=== PATIENT | female | born 1980 | race Caucasian/White ===

== ENCOUNTER 2022-05-04 23:15 | Emergency (ER) | payer SELFPAY ==
[2022-05-04 23:25] VITALS: BP 125/78; PULSE 84; RESP 18; TEMP 36.8; O2SAT 99; BMI 58.1
--- NOTE | 2022-05-04 23:47 | CRLHL7_ITS ---
For Patients: As a result of the Century Cures Act, medical imaging exams and procedure reports are released immediately into your electronic medical record. You may view this report before your referring provider. If you have questions, please contact your health care provider. INDICATION: fall on blood thinners, hematoma sacral area TECHNIQUE: CT pelvis without contrast. COMPARISON: CT abdomen and pelvis 11/1920. FINDINGS: Bones: No acute fracture or aggressive osseous lesion. Alignment is normal. Joints: Unremarkable. Soft tissues: No inflammatory stranding posterior to or about the sacrum to indicate a hematoma. Probable injection granulomas in the anterior lower abdominal wall. Large fat-containing umbilical hernia. Skin thickening and subcutaneous soft tissue stranding about the lower aspect of the patient`s pannus, partially imaged. No free fluid in the pelvis. IMPRESSION: No acute fracture. No CT evidence for sacral hematoma. Large fat-containing umbilical hernia. Skin thickening and subcutaneous soft tissue stranding about the lower aspect of the patient`s pannus, which is incompletely imaged. Findings could represent cellulitis. Recommend correlation with physical exam. Please note that all CT scans at this facility use dose modulation, iterative reconstruction, and/or weight-based dosing when appropriate to reduce radiation dose to as low as reasonably achievable. Dictated by Robson Silver MD @ 05/05/2022 12:44:33 AM (Electronically Signed)
[2022-05-05 00:03] VITALS: O2SAT 99
[2022-05-05] MEDS: 0.9 % SODIUM CHLORIDE 1000 ml 1,000 ML IV (00:04)
[2022-05-05 00:07] LABS: Creatinine, Point-of-Care* 0.7 mg/dl (0.6-1.3)
[2022-05-05 00:13] LABS: Hemoglobin* 12.7 gm/dL (12.0-16.0)
--- NOTE | 2022-05-05 00:31 | ED.BACK ---
HPI - Back Pain/Injury General Chief Complaint: Back Injury/Pain Stated Complaint: lower back pain post fall - on blood thinners Time Seen by Provider: 05/04/22 23:21 History of Present Illness HPI Narrative: 41-year-old woman here with complaint of low back area pain after a fall onto her backside 3-4 days ago. She is not having any headache. No discoordination or visual disturbances. No neck pain. No radicular symptoms in her legs. Pain is localized across the low back. She has not been experiencing any new abdominal pain. Does have a history of pulmonary embolus and is maintained on Coumadin. Does have a history also an abdominal wall hematoma while anticoagulated in the left mid abdomen that continues to be a uncomfortable many months later but not worsening. She gestures to her mid lower left abdomen. She has not been having any melena or hematochezia or hematemesis. No new shortness of breath or chest pain. Hurts to rotate bend stoop sit. Having trouble sleeping due to pain. Has been taking acetaminophen with minimal relief. Related Data Home Medications Medication Instructions Recorded Confirmed glipizide 10 mg tablet 10 mg PO BID 05/04/22 05/04/22 lisinopril 10 mg tablet 10 mg PO DAILY 05/04/22 05/04/22 metformin 1,000 mg tablet 1,000 mg PO BID 05/04/22 05/04/22 warfarin 4 mg tablet 4 mg PO DIRECTED 05/04/22 05/04/22 Previous Rx's Medication Instructions Recorded omeprazole 40 mg capsule,delayed 40 mg PO DAILY 14 days #14 caps 05/05/22 release Allergies Allergy/AdvReac Type Severity Reaction Status Date / Time No Known Drug Allergies Allergy Verified 05/04/22 23:35 Review of Systems Status of ROS: Reports: 6 or more systems reviewed and unremarkable except as noted in History and below [facility] Medical History Bacterial vaginosis wound infection Gonorrhea Macrosomia Morbid obesity with BMI of 60.0-69.9, adult IMELDA (obstructive sleep apnea) Polycystic ovaries Pulmonary embolism Type 2 diabetes mellitus Surgical History History of section History of tonsillectomy Social History Smoking Status: Never smoker Do you use any of these nicotine containing products: None Second hand tobacco smoke exposure: No How often do you have a drink containing alcohol: never How often do you have six or more drinks on one occasion: Never AUDIT-C Alcohol total score: 0 Non-prescribed substance use: denies use Active Problems Contusion (Acute) T14.8XXA Bloody emesis (Acute) K92.0 Medical History Bacterial vaginosis wound infection Gonorrhea Macrosomia Morbid obesity with BMI of 60.0-69.9, adult IMELDA (obstructive sleep apnea) Polycystic ovaries Pulmonary embolism Type 2 diabetes mellitus Surgical History History of section History of tonsillectomy Social History Smoking Status: Never smoker Do you use any of these nicotine containing products: None Second hand tobacco smoke exposure: No How often do you have a drink containing alcohol: never How often do you have six or more drinks on one occasion: Never AUDIT-C Alcohol total score: 0 Non-prescribed substance use: denies use Exam Narrative: Exam Narrative: I observe Martha ambulating into the emergency department consistent with degree obesity. Otherwise breathing easily. Skin is warm and dry. There is a hand sized dark purple red bruise on the right low back at the level of the upper sacrum. No induration. Difficult to really assess tissues here I think limited by obesity. Abdomen otherwise is obese soft and nontender in the upper abdomen epigastric area. Cranial nerves 2-12 intact. Fully alert easily conversant. Transitions to standing with some discomfort. Does not have midline back or sacral tenderness exactly. Const: Vital Signs, click to edit/add: Vital Signs - 24 hr 05/04/22 23:25 05/05/22 00:03 05/05/22 01:25 Temperature 98.2 F 98.2 F Pulse Rate [Right Pulse Oximeter] 84 84 Respiratory Rate 18 18 Blood Pressure [Ri ght Upper Arm] 125/78 125/78 Pulse Oximetry 99 99 Oxygen Delivery Me thod Room Air 05/05/22 01:25 Temperature 98.5 F Pulse Rate [Right Pulse Oximeter] 85 Respiratory Rate 18 Blood Pressure [Ri ght Upper Arm] 122/79 Pulse Oximetry 99 Oxygen Delivery Me thod Room Air Documenting provider has reviewed patient's vital signs: yes Course Vital Signs Vital signs: Initial Vital Signs Temperature 98.2 F 05/04/22 23:25 Temperature Source Temporal Artery Scan 05/04/22 23:25 Pulse Rate 84 05/04/22 23:25 Respiratory Rate 18 05/04/22 23:25 Blood Pressure 125/78 05/04/22 23:25 Blood Pressure Mean 93 05/04/22 23:25 Blood Pressure Position Standing 05/04/22 23:25 Pulse Oximetry 99 05/04/22 23:25 Oxygen Delivery Method 05/04/22 23:25 Vital Signs Temperature 98.2 F 05/04/22 23:25 Pulse Rate 84 05/04/22 23:25 Respiratory Rate 18 05/04/22 23:25 Blood Pressure 125/78 05/04/22 23:25 Pulse Oximetry 99 05/04/22 23:25 Oxygen Delivery Method 05/04/22 23:25 Temperature 98.5 F 05/05/22 01:25 Pulse Rate 85 05/05/22 01:25 Respiratory Rate 18 05/05/22 01:25 Blood Pressure 122/79 05/05/22 01:25 Pulse Oximetry 99 05/05/22 01:25 Oxygen Delivery Method 05/05/22 01:25 MDM - Back Pain/Injury MDM Narrative Medical decision making narrative: Given history of abdominal hematoma, anticoagulation, degree of pain I think imaging is warranted. Will check INR and contrasted imaging of the low back/pelvis. INR is 1.66. Hemoglobin is 12.7. Vomited in imaging. Looks consistent with blood stained emesis. Positive on gastroccult testing. Feels well otherwise on reassessment. Martha says has felt similarly with IV contrast in the past and she feels that that caused her to be nauseated/vomited. She denies having any unusual abdominal pain or any vomiting prior to this recently. We discussed pain management. She is not taking a PPI generally. On my review of CT images I do not see a hematoma nor acute bony abnormality. Radiology over-read as below INDICATION: fall on blood thinners, hematoma sacral area TECHNIQUE: CT pelvis without contrast. COMPARISON: CT abdomen and pelvis 11/1920. FINDINGS: Bones: No acute fracture or aggressive osseous lesion. Alignment is normal. Joints: Unremarkable. Soft tissues: No inflammatory stranding posterior to or about the sacrum to indicate a hematoma. Probable injection granulomas in the anterior lower abdominal wall. Large fat-containing umbilical hernia. Skin thickening and subcutaneous soft tissue stranding about the lower aspect of the patient`s pannus, partially imaged. No free fluid in the pelvis. IMPRESSION: No acute fracture. No CT evidence for sacral hematoma. Large fat-containing umbilical hernia. Skin thickening and subcutaneous soft tissue stranding about the lower aspect of the patient`s pannus, which is incompletely imaged. Findings could represent cellulitis. Recommend correlation with physical exam. I discussed findings and CT with Martha. I offered to evaluate this area for potential cellulitis. She was disinclined. Is relieved overall that no fracture or hematoma is evident. See patient discharge plan. Medical Records Attestation: I reviewed the patient's medical records. Lab Data Attestation: I reviewed the patient's lab results. Labs: Lab Results 05/05/22 05/05/22 05/05/22 Range/Units 00:01 00:01 00:06 Hgb 12.7 (12.0-16.0) gm/dL INR 1.66 H (0.91-1.10) POC Creatinine 0.7 (0.6-1.3) mg/dl Discharge Plan Discharge Clinical Impression: Contusion, Bloody emesis Patient Disposition: Home, Self-Care Condition: Stable Additional Instructions: I am concerned about this bloody vomitus. Your hemoglobin was 12.7 today. You might consider taking a medication like omeprazole for a couple of weeks to settle down acid in the stomach. Return for persistent bloody vomitus, new shortness of breath or lightheadedness. Your INR was 1.66. In the setting of possible evolving stomach bleed or this large bruise at your backside, it's hard for me to tell you to increase your Coumadin dosing to get into range. I would wait to see what happens with this potential stomach bleed over the next couple of days. Recheck INR in middle of next week. Can check hemoglobin at that time too. If all of this seems to settle down I still would recheck blood level like hemoglobin/hematocrit in a few weeks. I would also follow up for recommendations on further evaluation which might include upper endoscopy. Tylenol with codeine from [facility] --this can make you sleepy and potentially constipated. Be sure to stay well hydrated drinking 2-3 L of water daily. Might want to take a tablet of senna once or twice a day if taking the Tylenol with codeine. Prescriptions: New omeprazole 40 mg capsule,delayed release(DR/EC) 40 mg PO DAILY 14 Days Qty: 14 0RF No Action lisinopril 10 mg tablet 10 mg PO DAILY Label Comments: TAKE ONE TABLET BY MOUTH EVERY DAY metformin 1,000 mg tablet 1,000 mg PO BID Label Comments: TAKE ONE TABLET BY MOUTH TWICE A DAY WITH MEALS warfarin 4 mg tablet 4 mg PO DIRECTED Label Comments: TAKE 2.5 TABLETS (10MG) BY MOUTH ON FRIDAY AND FRIDAY AND 2 TABLETS (8MG) ALL OTHER DAYS OR DIRECTED STRENGTH: 4 MG glipizide 10 mg tablet 10 mg PO BID Label Comments: TAKE ONE TABLET BY MOUTH TWICE A DAY BEFORE MEALS Follow Up/Referrals: Franca Saucedo MD [Primary Care Provider] - Stand Alone Forms: [employer] Info Instructions
[2022-05-05 00:35] LABS: INR 1.66 (0.91-1.10); Prothrombin Time 20.5 Seconds
--- NOTE | 2022-05-05 00:36 | ED.NURSE ---
gastroccult positive for blood. MD Reyes updated.
[2022-05-05 01:25] VITALS: BP 122/79; BP 125/78; PULSE 84; PULSE 85; RESP 18; TEMP 36.8; TEMP 36.9; O2SAT 99
[2022-05-06 01:23] LABS: Gastric Occult Blood* POSITIVE
== END 2022-05-05 01:25 | disposition home or self-care (01) ==
PROVIDERS: Emergency Provider Family Medicine; PCP Family Medicine
DX: K92.0 Hematemesis (principal); S30.0XXA Contusion of lower back and pelvis, initial encounter
CPT/HCPCS: 36415; 72193; 82565; 83986; 85018; 85610; 94761; 99283; 99284; J7030; Q9967

== ENCOUNTER 2024-06-01 13:05 | Inpatient (IN) | payer MEDICAID, SELFPAY ==
[2024-06-01] VITALS (28 sets, daily range): BP systolic 125–150; BP diastolic 63–75; PULSE 75–96; RESP 14–28; TEMP 36.4–37.2; O2SAT 69–96; BMI 65.6; BMI 50.3
--- OUTSIDE RECORDS SUMMARY | 2024-06-01 13:07 | XMS_ITS | Clinical Summary ---
Author Organization [facility] Address [address] [place] [id number] Care Team Providers Care Manager Product Management Name Role Phone Bart Cabrera MD Unavailable [phone] Franca Saucedo MD Primary Care Provide r Allergies No known active allergies Medications blood sugar diagnostic (CONTOUR NEXT STRIPS) stripIndication s:Type 2 diabetes mellitus in , third trimester (HC) Test glucose four times daily. Patient with diabetes mellitus 2 and . 400 Strip 1 8 Active WalkerIndicatio ns:Abdominal wall hematoma, subsequent encounter Walker with front wheels for home use. Bariatric walker 1 Each 1 Active blood-glucose meterIndication s:Type 2 diabetes mellitus without complication, without long-term current use of insulin (HC) Dispense meter, test strips, lancets covered by pt ins. E11.9 NIDDM type II - Test 2 times/day. Reason: Med change 1 Each 1 Active glipiZIDE (GLUCOTROL) 10 mg tabletIndicatio ns:Type 2 diabetes mellitus without complication, without long-term current use of insulin (HC) Take 1 Tablet (10 mg) by mouth once daily before a meal. 90 Tablet 3 4 Active lisinopriL (PRINIVIL; ZESTRIL) 10 mg tabletIndicatio ns:HTN (hypertension) Take 1 Tablet (10 mg) by mouth once daily. 90 Tablet 3 4 Active metFORMIN (GLUCOPHAGE) 1,000 mg tabletIndicatio ns:Type 2 diabetes mellitus without complication, without long-term current use of insulin (HC) Take 1 Tablet (1,000 mg) by mouth once daily with a meal. 90 Tablet 3 4 Active warfarin (COUMADIN) 4 mg tabletIndicatio ns:Hypercoagulo jimbo (HC),Hx pulmonary embolism,Recurr ent deep vein thrombosis (DVT) (HC),Anticoagul ation monitoring, INR range 2-3 TAKE TWO AND ONE-HALF TABLETS (10MG) BY MOUTH ON FRIDAY AND FRIDAY AND 2 TABLETS (8MG) ALL OTHER DAYS OR DIRECTED. 240 Tablet 3 4 Active ferrous gluconate 324 mg (37 mg iron) tabletIndicatio ns:Other iron deficiency anemia Take 1 Tablet by mouth three times daily with meals. 90 Tablet 3 4 Active Active Problems Problem Noted Date Diagnosed Date Pulmonary hypertension 06/06/2022 Type 2 diabetes mellitus wit h other specified complication, without long-term current use of insulin 06/06/2022 Abdominal wall hematoma 11/20/2020 Acute blood loss anemia 11/20/2020 TRANG (acute kidney injury) 11/20/2020 Hyperkalemia 11/20/2020 Pneumonia due to COVID-19 virus 11/20/2020 Hypercoagulopathy 05/21/2018 HTN (hypertension) 07/10/2017 Recurrent deep vein thrombosis (DVT) 04/26/2016 Anticoagulation monitoring, INR range 2-3 2016 Overview (04/26/2016): 04/20/17: [facility] where a venous doppler was performed and was positive for deep vein thrombosis from saphenous vein all the way up to her thigh. Rubi Cooper RN .................... 04/26/2016 3:42 PM S/P tubal ligation 09/27/2014 Diaphoresis 09/27/2014 E coli bacteremia 09/27/2014 Elevated troponin 09/27/2014 Fever 09/26/2014 ACP (advance care planning) 09/26/2014 Overview (09/28/2014): Patient has identified Health Care Agent(s): No Add Health Care Agents: No Patient has Advance Care Plan Documents (Health Care Directive, POLST): No Patient has identified Specific Treatment Preferences: Yes Specific Treatment Preferences: a.) Code Status: CPR/Attempt Resuscitation SW met with Pt 09/28/2014. Pt states if she's unable to communicate her healthcare wishes her sister, Abril Fernandez: [phone], would be her primary spokesperson. Marquita Andujar, BACK HOE OPERATOR, PROGRAM MANAGEMENT INTERN...Pager [phone]... ext. [phone], contact via anwpaging delivery delivered 09/25/2014 Prolonged PTT 09/24/2014 Overview (09/24/2014): PTT 59 @ 0630, 09/24 Full-term premature rupture of membranes with onset of labor more than 24 hours following rupture 09/23/2014 Macrosomia affecting managem ent of mother in third trimester 09/22/2014 IMELDA (obstructive sleep apnea) 09/22/2014 Vitamin D deficiency 07/22/2014 Poorly controlled type 2 diabetes mellitus 07/20 Hx pulmonary embolism 07/20/2014 Overview (07/20/2014): 5 days post-C/S 2007 Supervision of other high-risk (V23.89) 06/27/2014 Overview (09/20/2014): [facility] NEXT VISIT ALERTS: Patient admitted for chest pain 09/17. [facility] Changed heparin 19,000 units Q 8 hours on 09/15/14 (hold 24 hr prior to procedure) NEEDS Heparin Level drawn at [facility] on Friday, September 19. Needs Platelets monthly 09/08/14-185,000 Last draw: 09/15/14= 202,000 PRIMARY DIAGNOSIS: Recent H/O POLYHYDRAMNIOS Hx PE 5 days (on therapeutic anticoagulant-Heparin 19,000 units q 8 hrs) Hx DVT BMI of 62 Hx LST C/S x 2. (FTP 2005, Rpt 2007) Hx of wound infection 2007 after C/S Type 2 DM on Glyburide/Metformin (non compliant with testing) POOR CONTROL Dyspnea PCOS Hx Head Injury 2001 Hx gonorrhea 2007 LAST GROWTH: Needs serial growth ultrasounds every 4 weeks 08/25/14 34w1d EFW 3504 grams, percentile >90%, AC > 97th %ile BELLE 12.44 07/20/14 29w0d EFW 1781 grams, percentile 85, BELLE 23.16 06/22/14 26w0d EFW 935 grams, percentile 93rd 05/26/14 21w0d EFW 434 grams, percentile 76th 04/29/14 17w6d EFW 205 grams, percentile 70th TESTING PLANS: 28 wks per protocol-BPPs twice weekly (no NST due to maternal habitus) Having BPP only in [place] on Mondays & @ [facility] on DEPRESSION SCREEN Initial screen: Date 08/11/14 PHQ-9 score: 0 : Date PHQ-9 score: MDD Present?: NO EBER: EBER signed for [facility]: Signed 08/11/14 REFERRING PHYSICIAN: Dr. Keyonna Ramires & Dr Amaury Hinton [place] [phone] SPECIALISTS: Endocrine-PDC Dr. Cabrera 09/01 [facility] Cardiology: Consult scheduled for 08/30 EMT I/85: CARE COORDINATION: Ena Dominique RN & Akilah Buitrgao RN Maternal Care Coordination [phone] Ekta & Natividad Care Coordination RNs for [facility] [place] [phone] CONSULTS: MDA reviewed 09/06/14 ENDOCRINE PDC-ongoing management I CARDIOLOGY CONSULT 08/30 Impression: 1. Morbid obesity, third trimester , need for section and surgical sterilization. A) The patient had an echo that is satisfactory. B) She should be at no increased risk from a cardiac standpoint of her and sterilization. PROCEDURES: 09/17/14 CT IMPRESSION: 1. No CT evidence of pulmonary embolism seen. 2. Enlargement of the main pulmonary artery is present which may be due to a hyperdynamic state. Followup imaging after delivery is recommended to exclude pulmonary hypertension. 09/17/14 ECHO Final Impressions: Limited Echocardiogram performed 1. Technically limited exam. 2. Normal left ventricular systolic function with estimated ejection fraction fraction of 60-65%. 3. There is no significant pericardial effusion. 09/17/14 Normal ECG CHECKLIST FOR SCHEDULING PROCEDURES: Procedure: C/BIRTH__x___ PPTL __X___ ECV CERCLAGE INDUCTION D&C Unit: L&D___x__ DSC MAIN OR____ Date & Time of procedure: 09/28/14, 09 Gestational age on procedure date? 39 weeks MD doing procedure: Dr. Hernandez and hospitalist Date scheduled: 08/11/14 Scheduling MD: Garcia HODGES notified if early case? No On [facility] calendar? Yes Amnio needed? No Amnio scheduled? Not Applicable Does NICU need notification? No NICU notification done: Not Applicable PPTL permit signed? yes Patient notified of procedure date? Yes Written admission instructions given to patient? Yes MEDS: INSULIN Metformin 1000mg bid Glyburide 5 mg bid Heparin 19,000 units q 8 hrs Patient is on Therapeutic Heparin. Refer to [facility] Anticoagulation Doc Flow Sheet. Platelets monthly, last draw: 09/15 Pertinent/Abnormal LABS: 03/23/14 HgbA1c 6.5 Blood type: O positive, negative antibody screen Last pap: 06/2013 WNL, Initial Hgb 13.6 (03/23/14) Hgb 28 wk 11.8 07/20 Hgb 36 wk 11.7 on 09/08/14 08/18/14 Lovenox level= 0.87 therapeutic 09/08/1471-CEN-pbtpuzez ACTIVITY RESTRICTIONS: NURSING: Tdap vaccine: Date given: 08/18/14 Flu Vaccine: Date given: declined Non BM 64 Plan for Gestational Diabetes screening: Type II DM DELIVERY PLANS: [facility]-See procedures Planning Tubal Ligation-Permit signed/scanned 08/18/14 Is Medical assistance PLAN OF CARE: 09/08/14 HS Labs: CBC and GBS Labor precautions reviewed Instructed on movements and kick counts Patient understands she should call or return to clinic if she experiences any decreased movements, increased contractions (discomfort and frequency), vaginal bleeding, or leaking of fluid. Return to clinic weekly for OB checks Continue twice weekly testing - once at [facility], once at [facility] sterilization consent signed 08/18/14 Transitioned from Lovenox 150 mg twice daily to 15,000 units of heparin every 8 hours, reviewed dosage with Dr. Norbert Will need a peak heparin level next week, explained to patient that this preferably would be done 4 hours post injection Encouraged her to continue with glucose control Will transition to coumadin Repeat previously scheduled for 09/28/[address] Hernandez and OB hospitalist at [facility] Morbid obesity with BMI of 60.0-69.9, adult 03/0 05/2014 Overview (09/24/2014): 3 grams IV prophyl Ancel disc'd/accepted by PharmD Dyspnea 05/02/2014 Diabetes mellitus type II 03/17/2012 Overview (08/04/2014): 08/04/2014First appointment with Dr. Cabrera at [facility] today. Insulin start today. *On 08/04/2014 The Following appointment Plan for 08/11/2014 was made with [facility] and Cynthia Martinez PHOTOGRAPHIC DEVELOPER AND PRINTER On 08/11/2014 patient will have ISABELA part 2 at [facility] at [place] starting at 1245. After BPP at 1245, patient will go to [facility] (115pm or so) to see Dr. Cabrera. After Dr. Cabrera, Return to [facility] for rest of ISABELA After ISABELA, return to [facility] for follow up meal planning. a system change updated this record. This will not affect patient care or billing. This comment can be deleted. Polycystic ovaries 09/21/2009 Resolved Problems Problem Noted Date Diagnosed Date Resolved Date Acute respiratory failure due to COVID-19 11/20/2020 06/06/2022 Recurrent deep vein thrombosis (DVT) 04/26/2016 07/10/2017 Anticoagulation monitoring, INR range 2-3 10/05/2014 04/06/2015 Active labor 09/25/2014 09/26/2014 History of macrosomia in inf ant in prior , currently in third trimester 09/22/2014 09/27/2014 History of wound infection (2007) 09/22/2014 09/27/2014 Request for sterilization 08/19/2014 Overview (08/19/2014): Federal consent signed 08/18/14 Polyhydramnios in third trimester 07/20/2014 09/22/2014 History of DVT (deep vein thrombosis) 05/03/2014 07/10/2017 Previous delivery a ffecting , antepartum 05/03/2014 09/27/2014 Type 2 diabetes mellitus in 05/03/2014 07/10/2017 Overview (09/24/2014): Ha1c= 5.9 mid August 2014; Glyburide/Metformin Obstetric pulmonary embolism, 04/07/2014 09/22/2014 Long-term (current) use of anticoagulants 12/07/2007 06/06/2009 Supervision of other normal 04/21/2007 12/08/2007 Immunizations Immunization Administration Dates Next Due COVID-19 VACCINE SPIKEVAX (M ODERNA 50MCG/0.5ML) 12YO+ PFS 08/05/2023 COVID-19 vaccine (Fangdd-BioNTech 30mcg/0.3mL) P F, MDV 12/19/2020,10/24/2020 Human Papilloma Virus Vaccine 12/16/2006 Influenza, IIV3 (Age >=3 years) 02/08/2005 Pneumococcal Conj 20-valent (Prevnar 20) 024 Td (Age >=7 Years) 06/20/2000 Tdap 08/18/2014 Tuberculin (PPD) 08/06/2010 Family History Medical History Relation Name Comments Good Health Father Cancer Maternal Grandfather brain t umor Cancer Mother survey technologist, ? cervical Diabetes Mother as adult Psychiatric illness Sister depressi on Relation Name Status Comments Father Maternal Grandfather Mother Sister Social History Tobacco Use Types Packs/Day Years Used Date Smoking Tobacco: Never Smokeless Tobacco: Never Tobacco Cessation:Counseling Given: Yes Alcohol Use Standard Drinks/Week Comments No 0 (1 standard drink = 0.6 oz pur e alcohol) PHQ-2 Answer Date Recorded PHQ-2 TOTAL SCORE 0 06/06/2022 Social Connections Answer Date Recorded Do you often feel lonely or isolated from those around you? 0 08/26/2023 Financial Resource Strain Answer Date R ecorded Difficulty of Paying Living Expenses 2 08/05/2023 Difficulty of Paying Living Expenses 1 08/05/2023 Food Insecurity Answer Date Recorded Do you worry your food will run out before you are able to buy more? 1 08/26/2023 Transportation Needs Answer Date Record ed Does lack of transportation keep you from medica l appointments? 2 08/26/2023 Does lack of transportation keep you from work, meetings or getting things that you need? 2 08/26/2023 Housing Stability Answer Date Recorded What is your housing situation today? 1 08/26/2023 Utilities Answer Date Recorded Do you have trouble paying f or utilities (for example, heat, electricity, water, phone)? 1 08/26/2023 Comments No Sex and Gender Information Value Date Recorded Sex Assigned at Not on file Legal Sex Female 5:39 AM NANOTECHNOLOGY ENGINEERING TECHNOLOGIST Gender Identity Not on file Sexual Orientation Not on file Occupation Industry Job Start Date Job End Date homemaker Not on file Not on file Not on file Obstetrics History Para Term AB IAB SAB Ectopic Multiple Livin g Live Births 3 2 2 3 3 Date Outcome GA Total Labor Labor/2nd/3rd Weight Sex Type Anes PTL Stephanie A1 A5 Name Clin 2005 Term 40w 0d 24h 00m/ 4.08 kg (9 lb) F C-Sec tion Spinal Livin g Charanjitrie la Comments:FTP 2007 Term 38w 4d 24h 00m/ 3.63 kg (8 lb) M C-Sec tion Spinal Livin g Marino rosales Delivery Location:[place] Comments:PE 5 days pos tpartum, SROM 2014 Term 38w 4d 5.02 kg (11 lb 1 oz) M C-Sec tion Epidur al N Livin g Malcom Cruz a Delivery Location:[facility] Comments:admit to NICU - sick baby Last Filed Vital Signs Vital Sign Reading Time Taken Comments Blood Pressure 153/79 08/05/2023 1:11 PM CDT Pulse 87 08/05/2023 1:11 PM CDT Temperature 37.6 C (99.6 F) 08/17/2021 11:23 AM CDT Respiratory Rate 20 01/12/2021 9:20 AM NANOTECHNOLOGY ENGINEERING TECHNOLOGIST Oxygen Saturation 90% 08/05/2023 1:11 PM CDT Inhaled Oxygen Concentration - - Weight 180 kg (396 lb 14.4 oz) 08/05/2023 1:11 P M CDT Height 162.6 cm (5' 4) 08/05/2023 1:11 PM CDT Body Mass Index 68.13 08/05/2023 1:11 PM CDT Plan of Treatment Upcoming Encounters Date Type Department Care Team (Late Contact Info) Description 07/06/2024 10:05 AM CDT Office Visit [facility] [address] [place] [address] Franca Saucedo MD [address] [place] [address] Health Maintenance Due Date Last Done Comments Hepatitis B series for Diabe pavan (1 of 3 - 19+ 3-dose series) 2001 Pap test for age 21-65 06/08/2016 4, 03/17/2012, 09/21/2009, Additional history exists Depression screening for age 12+ 06/08/2023 06/07/2022, 06/06/2022, 12/22/2020, Additional history exists COVID-19 vaccine series (2023- season) 2023 08/05/2023, 12/19/2020, 10/24/2020 BMI (ht and wt on same day) for age 18+ 08/04/2024 08/05/2023, 02/18/2022, 08/17/2021, Additional history exists Tetanus booster 08/18/2024 08/18/2014, 06/20/2000 Influenza Vaccine (Season Ended) 2024 02/09/20 05 HIV for age 15-65 Completed 03/23/2014, , 04/14/2007 Hepatitis C screening for ag e 18-79 Completed 03/23/2014 Tdap Completed 08/18/2014 Pneumococcal series for age 6-49 Completed 08/05/19 24 Procedures Procedure Name Priority Date/Time Associated Diagnosis Comments ANTI HIV 1/2 Routine 03/23/2014 11:11 AM NANOTECHNOLOGY ENGINEERING TECHNOLOGIST (HC) ANTI HCV Routine 03/23/2014 11:11 AM NANOTECHNOLOGY ENGINEERING TECHNOLOGIST (HC) TAX AUDITOR THIN PREP PAP SCREEN IMAGED Routine 06/08/2013 2:55 PM CDT Screening for malignant neoplasm of cervix from Last 3 Months or Most Recently Relevant to Health Maintenance Results * ANTI HCV (03/23/2014 11:11 AM NANOTECHNOLOGY ENGINEERING TECHNOLOGIST) HEPATITIS C ANTIBODY Non-Reacti ve Non-Reacti ve 03/23/2014 4:10 PM NANOTECHNOLOGY ENGINEERING TECHNOLOGIST [facility] Blood specimen (specimen) BLOOD SPECIMEN / Unknown Venipuncture / Unknown 03/23/2014 11:11 AM NANOTECHNOLOGY ENGINEERING TECHNOLOGIST 03/23/2014 11:12 AM NANOTECHNOLOGY ENGINEERING TECHNOLOGIST Narrative [facility] - 03/23/2014 4:10 PM NANOTECHNOLOGY ENGINEERING TECHNOLOGIST Antibodies to HCV not detected; does not exclude the possibility of exposure to HCV. Ailyn GUTIERREZ SEND OUTS Final R esult [facility] [address] [place] [address], [place] * ANTI HIV 1/2 (03/23/2014 11:11 AM NANOTECHNOLOGY ENGINEERING TECHNOLOGIST) HIV-1/HIV-2 ANTIBODY Non-Reacti ve Non-Reacti ve 03/23/2014 4:12 PM NANOTECHNOLOGY ENGINEERING TECHNOLOGIST [facility] Blood specimen (specimen) BLOOD SPECIMEN / Unknown Venipuncture / Unknown 03/23/2014 11:11 AM NANOTECHNOLOGY ENGINEERING TECHNOLOGIST 03/23/2014 11:12 AM NANOTECHNOLOGY ENGINEERING TECHNOLOGIST [facility] LAB[facility] - 03/23/2014 4:12 PM NANOTECHNOLOGY ENGINEERING TECHNOLOGIST HIV-1 p24 and HIV-1/HIV-2 Ab not detected Ailyn GUTIERREZ SEND OUTS Final R esult [facility] [address] [place] [address], [place] * TAX AUDITOR THIN PREP PAP SCREEN IMAGED (06/08/2013 2:55 PM CDT) CYTOLOGY CYTOPATHOLOGY REPORT [facility] Status: Final Status [id number] CLINICAL INFORMATION Last Date of LMP :05/10/2013 Last Pap Date :03/17/2012 Last Pap Result :NIL ABN [place]/Bx Past 5 YRS :None Hormone Usage :None Menstrual Status :Regular Periods [place]/Bx done today :No Additional Information :None given HPV Request :HPV if ASCUS SPECIMEN SOURCE :Cervical/vaginal ThinPrep Vial, screening SPECIMEN ADEQUACY :Satisfactory for evaluation No endocervical component seen. INTERPRETATION/RES ULT Negative for intraepithelial lesion or malignancy (NIL) Organisms Fungal organisms morphologically consistent with Lynsey species Cytology 1st Screener :mahesh Signed by :mahesh This specimen was screened by the FDA approved ThinPrep Imaging System and manually reviewed. NOTE: The Pap test is a screening technique, not a diagnostic procedure. It is used primarily to screen for squamous cancers and precursor lesions. Published studies have shown that it is subject to both false negative and false positive results. The pap test should not be used as the sole means to diagnose or exclude pre-malignant and malignant lesions. COLLECTED:06/08/13 ACCESSIONED: 06/09/13 SIGNED: 06/11/13 [facility] PAP [place] CODE NIL [facility] Tissue specimen (specimen) (Cervical/Vagina l) 06/08/2013 2:55 PM CDT 06/08/2013 2:52 PM CDT us Franca Saucedo MD PATHOLOGY/CYTOLOGY [facility] Result [facility] INTERNAL ZIP [id number] [place] [address] from Last 3 Months or Most Recently Relevant to Health Maintenance Additional Health Concerns Infection Onset Date Last Indicated COVID History Comment:COVID+ test result dates: 11/11/20, [place] Patient met COVID clearance criteria on 11/22. For evaluation of subsequent COVID+ results, refer to the algorithm on the AKN: Isolation Precaution Recommendations for Patients with History of COVID-19 Infection. 11/23/2020 11/23/2020 Insurance MEDICAID RAZA MEDICAID RAZA Advance Directives * Full Code (Latest Code Status on File) Date Activated Date Inactivated Comments 11/20/2020 1:25 PM 12/01/2020 4:39 PM Question Answer Comments Code Status Discussion: Not Discussed * Full Code Date Activated Date Inactivated Comments 09/25/2014 6:10 PM 10/05/2014 12:33 AM Question Answer Comments Code Status Discussion: Discussed * Full Code Date Activated Date Inactivated Comments 09/25/2014 6:07 PM 09/25/2014 6:10 PM * Full Code Date Activated Date Inactivated Comments 09/24/2014 1:31 AM 09/25/2014 5:55 PM * Full Code Date Activated Date Inactivated Comments 09/24/2014 12:48 AM 09/24/2014 1:31 AM Care Teams Manager Product Management Relationship Specialty Start Date End Date Franca Saucedo MD [address] [place] [address] PCP - General Family Practice 09/09/18 Bart Cabrera MD [address] [facility] [address] [place] [address] Endocrinology 10/02/14
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
[2024-06-01 14:25] LABS: Basophils Absolute Auto 0.01 K/uL (0.00-0.30); Basophils Percent Auto 0.1 % (0.0-3.0); Eosinophils Absolute Auto 0.13 K/uL (0.00-0.50); Eosinophils Percent Auto 1.8 % (0.0-7.0); Hematocrit* 47.8 % (33.0-51.0); Hemoglobin* 13.3 gm/dL (12.0-16.0); Immature Granulocytes Abs Auto 0.05 K/uL (0.00-0.30); Immature Granulocytes Pct Auto 0.7 %; Lymphocytes Percent Auto 19.1 % (20-44); Mean Corpuscular HGB Conc 28 gm/dL (32-36); Mean Corpuscular Hemoglobin 21 pg (26-34); Mean Corpuscular Volume 77 fL (80-100); Monocytes Percent Auto 6.9 % (0.0-11.0); Neutrophils Absolute Auto 5.05 K/uL (1.7-7.0); Neutrophils Percent Auto 71.4 % (42.0-72.0); Platelet Count* 208 K/uL (140-440); RDW Coefficient of Variation % 18.6 % (11.5-15.5); Red Blood Count* 6.24 m/uL (4.00-5.20); White Blood Count* 7.08 K/uL (4.50-11.00)
[2024-06-01 14:32] LABS: Slide Review Reflex No
[2024-06-01 14:36] LABS: Chloride* 100 mmol/L (96-114); Sodium* 137 mmol/L (135-149)
[2024-06-01 14:37] LABS: Potassium* 4.4 mmol/L (3.6-5.1)
[2024-06-01 14:39] LABS: Blood Urea Nitrogen* 10 mg/dL (5-24); Creatinine* 0.5 mg/dL (0.5-1.5); Est. Creatinine Clearance* 143.99; Estimated Glomerular Filt Rate 121 ml/min
[2024-06-01 14:40] LABS: Anion Gap 5 mEq/L (7-15); Calcium* 8.9 mg/dL (8.4-10.6); Carbon Dioxide* 32 mmol/L (20-32); Glucose* 165 mg/dL (60-115)
[2024-06-01 14:53] LABS: NT Pro B Type NatriureticPept* 300 pg/mL; Troponin I* < 0.01 ng/mL (0.01-0.04)
--- NOTE | 2024-06-01 15:06 | CRLHL7_ITS ---
For Patients: As a result of the Century Cures Act, medical imaging exams and procedure reports are released immediately into your electronic medical record. You may view this report before your referring provider. If you have questions, please contact your health care provider. INDICATION: Dyspnea. Chest pain. TECHNIQUE: Multiplanar CT pulmonary angiogram was performed after the administration of 95 mL of Isovue 370 intravenous contrast. COMPARISON: Chest radiograph 08/09/2021. FINDINGS: Patient body habitus limits evaluation. Lower neck: The visualized thyroid is unremarkable. Cardiovascular: Suboptimal contrast opacification and photopenic artifact limits evaluation for distal pulmonary emboli. Cardiomegaly. The thoracic aorta is normal in caliber. Mildly dilated main pulmonary artery measuring 4.1 cm. Mild atherosclerotic calcifications of the aortic arch. Coronary arterial calcifications. No large central pulmonary embolus. Mediastinum and lymph nodes: Prominent mediastinal lymph nodes, probably reactive. Lungs: No focal consolidation. Dependent atelectasis. Linear bandlike opacification of the lung bases bilaterally, likely subsegmental atelectasis and/or scarring. Mild pulmonary vascular congestion. Mosaic attenuation pattern opacification diffusely, possibly small airways or small vessels disease. There are scattered subcentimeter pulmonary nodules, largest is a right lower lobe pulmonary nodule measuring 7 mm (5:117). Airways: The trachea remains patent and midline. Mild diffuse peribronchial wall thickening. Pleura: No pleural effusions or pneumothorax. Chest wall: Unremarkable. Prominent axillary lymph nodes that do not meet size criteria for lymphadenopathy. Bones: No acute osseous abnormalities. Mild degenerative changes of the thoracic spine. Upper abdomen: No acute findings in the visualized upper abdomen. No reflux of contrast material into the IVC. 1.3 cm right adrenal nodule. IMPRESSION: 1. Limited evaluation due to photopenic artifact. 2. No large central pulmonary embolus. 3. There are scattered pulmonary nodules measuring up to 7 mm, indeterminate, possibly infectious or inflammatory in etiology. Recommend repeat CT in 3-6 months to assess stability or resolution to exclude underlying neoplasm, with optional additional follow-up CT in 18-24 months, per Fleischner society guidelines. 4. A dilated main pulmonary artery measuring 4.1 cm, nonspecific can be seen in setting of pulmonary arterial hypertension. 5. Cardiomegaly with mild pulmonary vascular congestion. 6. Indeterminate right adrenal nodule measuring 1.3 cm, possibly an adrenal adenoma. Further evaluation may be obtained with a dedicated contrast enhanced CT, adrenal mass protocol. Please note that all CT scans at this facility use dose modulation, iterative reconstruction, and/or weight-based dosing when appropriate to reduce radiation dose to as low as reasonably achievable. Dictated by Rafi Adame MD @ 06/01/2024 3:58:45 PM (Electronically Signed)
[2024-06-01 15:20] LABS: D Dimer Quantitative* < 0.22 ug/ml (0.00-0.50)
[2024-06-01 15:29] LABS: Troponin, Point-of-Care* 0.01 ng/ml (0.01-0.04)
[2024-06-01] MEDS: 0.9 % SODIUM CHLORIDE 500 ML 500 ML IV (15:46)
--- NOTE | 2024-06-01 16:11 | ED.NURSE ---
Patient brought back from imagining. Feels more comfortable in chair, sats are 88% on 2L. Oxygen titrated up to 4L now 89-90%. MD aware.
--- OUTSIDE RECORDS SUMMARY | 2024-06-01 16:12 | XMS_ITS | Clinical Summary ---
Author Organization [employer] [facility] Address [address] [place] [address] Care Team Providers Care Supervisor Trust Accounts Name Role Phone Bart Cabrera MD Unavailable Franca Saucedo MD Primary Care Provide r [...] INR range 2-3 2016 Overview (04/26/2016): 04/20/17: [facility] where a venous doppler was [...] her healthcare wishes her sister, Abril Fernandez: [phone], would be her primary spokesperson. Marquita Andujar, [employer], [employer]ER [employer]OOK...Pager [phone]... ext. [phone], contact via anwpaging delivery delivered 09/25/2014 Prolonged [...] admitted for chest pain 09/17. ECHO/EKG/[facility] in [facility] Changed heparin 19,000 units Q 8 hours on 09/15/14 (hold 24 hr prior to procedure) NEEDS Heparin Level drawn at [facility] on Friday, September 19. Needs Platelets monthly [...] to maternal habitus) Having BPP only in [place] on Mondays & @ [facility] on DEPRESSION SCREEN Initial screen: Date 08/11/14 PHQ-9 score: 0 : Date PHQ-9 score: MDD Present?: NO EBER: EBER signed for [facility]: Signed 08/11/14 REFERRING PHYSICIAN: Dr. Keyonna Ramires & Dr Amaury Hinton [place] [phone] SPECIALISTS: Endocrine-PDC Dr. Cabrera 09/01 [facility] Cardiology: Consult scheduled for 08/30 BENEFITS CONSULTING ANALYST: CARE COORDINATION: Ena Dominique RN & Akilah Buitrago RN Maternal Care Coordination [phone] Ekta & Natividad Care Coordination RNs for [facility] [place] [phone] CONSULTS: MDA reviewed 09/06/14 ENDOCRINE PDC-ongoing management [...] HODGES notified if early case? No On [facility] calendar? Yes Amnio needed? No Amnio scheduled? Not Applicable Does NICU need notification? No NICU notification done: Not Applicable PPTL permit signed? yes Patient notified of procedure date? Yes Written admission instructions given to patient? Yes MEDS: INSULIN Metformin 1000mg bid Glyburide 5 mg bid Heparin 19,000 units q 8 hrs Patient is on Therapeutic Heparin. Refer to [facility] Anticoagulation Doc Flow Sheet. Platelets monthly, last draw: 09/15 Pertinent/Abnormal LABS: 03/23/14 HgbA1c 6.5 Blood type: O positive, negative antibody screen Last pap: 06/2013 WNL, Initial Hgb 13.6 (03/23/14) Hgb 28 wk 11.8 07/20 Hgb 36 wk 11.7 on 09/08/14 08/18/14 Lovenox level= 0.87 therapeutic 09/08/1406-ZEE-eggszgsn ACTIVITY RESTRICTIONS: NURSING: Tdap vaccine: Date given: 08/18/14 Flu Vaccine: Date given: declined Non BM 66 Plan for Gestational Diabetes screening: Type II DM DELIVERY PLANS: [facility] [place] Planning Tubal Ligation-Permit signed/scanned 08/18/14 Is [...] Continue twice weekly testing - once at [facility], once at [facility] sterilization consent signed 08/18/14 Transitioned from [...] with Dr. Hernandez and OB hospitalist at [facility] Morbid obesity with BMI of 60.0-69.9, adult 03/0 05/2014 Overview (09/24/2014): 3 grams IV prophyl Ancel disc'd/accepted by PharmD Dyspnea 05/02/2014 Diabetes mellitus type II 03/17/2012 Overview (08/04/2014): 08/04/2014First appointment with Dr. Cabrera at [facility] today. Insulin start today. *On 08/04/2014 The Following appointment Plan for 08/11/2014 was made with [facility] and Cynthia Martinez HIDE TRIMMER On 08/11/2014 patient will have ISABELA part 2 at [facility] at [place] starting at 1245. After BPP at 1245, patient will go to [facility] (115pm or so) to see Dr. Cabrera. After Dr. Cabrera, Return to [facility] for rest of ISABELA After ISABELA, return to [facility] for follow up meal planning. a [...] ODERNA 50MCG/0.5ML) 12YO+ PFS 08/05/2023 COVID-19 vaccine (lifeIO-BioNTech 30mcg/0.3mL) P F, MDV 12/19/2020,10/24/2020 Human Papilloma Virus Vaccine 12/16/2006 Influenza, IIV3 (Age >=3 years) 02/08/2005 Pneumococcal Conj 20-valent (Prevnar 20) 024 Td (Age >=7 Years) 06/20/2000 Tdap 08/18/2014 Tuberculin (PPD) 08/06/2010 Family History Medical History Relation Name Comments Good Health Father Cancer Maternal Grandfather brain t umor Cancer Mother delimber operator, ? cervical Diabetes Mother as adult Psychiatric [...] on file Legal Sex Female 5:39 AM PRESERVATIONIST Gender Identity Not on file Sexual Orientation [...] tion Spinal Livin g Marino rosales Delivery Location:[place] Comments:PE 5 days pos tpartum, SROM 2014 Term 38w 4d 5.02 kg (11 lb 1 oz) M C-Sec tion Epidur al N Livin g Malcom Cruz a Delivery Location:[facility] Comments:admit to NICU - sick baby Last Filed Vital Signs Vital Sign Reading Time Taken Comments Blood Pressure 153/79 08/05/2023 1:11 PM CDT Pulse 87 08/05/2023 1:11 PM CDT Temperature 37.6 C (99.6 F) 08/17/2021 11:23 AM CDT Respiratory Rate 20 01/12/2021 9:20 AM PRESERVATIONIST Oxygen Saturation 90% 08/05/2023 1:11 PM CDT Inhaled Oxygen Concentration - - Weight 180 kg (396 lb 14.4 oz) 08/05/2023 1:11 P M CDT Height 162.6 cm (5' 4) 08/05/2023 1:11 PM CDT Body Mass Index 68.13 08/05/2023 1:11 PM CDT Plan of Treatment Upcoming Encounters Date Type Department Care Team (Late Contact Info) Description 07/06/2024 10:05 AM CDT Office Visit [facility] [address] [place] [id number] Franca Saucedo MD [address] [place] [address] Health Maintenance Due Date Last Done Comments [...] ANTI HIV 1/2 Routine 03/23/2014 11:11 AM PRESERVATIONIST (HC) ANTI HCV Routine 03/23/2014 11:11 AM PRESERVATIONIST (HC) DOCK WORKER THIN PREP PAP SCREEN IMAGED Routine 06/08/2013 2:55 PM CDT Screening for malignant neoplasm of cervix from Last 3 Months or Most Recently Relevant to Health Maintenance Results * ANTI HCV (03/23/2014 11:11 AM PRESERVATIONIST) HEPATITIS C ANTIBODY Non-Reacti ve Non-Reacti ve 03/23/2014 4:10 PM PRESERVATIONIST [facility] Blood specimen (specimen) BLOOD SPECIMEN / Unknown Venipuncture / Unknown 03/23/2014 11:11 AM PRESERVATIONIST 03/23/2014 11:12 AM PRESERVATIONIST Narrative [facility] - 03/23/2014 4:10 PM PRESERVATIONIST Antibodies to HCV not detected; does not exclude the possibility of exposure to HCV. Ailyn GUTIERREZ SEND OUTS Final R esult [facility] [address] [place] [address], [place] * ANTI HIV 1/2 (03/23/2014 11:11 AM PRESERVATIONIST) HIV-1/HIV-2 ANTIBODY Non-Reacti ve Non-Reacti ve 03/23/2014 4:12 PM PRESERVATIONIST [facility] Blood specimen (specimen) BLOOD SPECIMEN / Unknown Venipuncture / Unknown 03/23/2014 11:11 AM PRESERVATIONIST 03/23/2014 11:12 AM PRESERVATIONIST [facility] - 03/23/2014 4:12 PM PRESERVATIONIST HIV-1 p24 and HIV-1/HIV-2 Ab not detected Ailyn GUTIERREZ SEND OUTS Final R esult [facility] [address] [place] [address], [place] * DOCK WORKER THIN PREP PAP SCREEN IMAGED (06/08/2013 2:55 PM CDT) CYTOLOGY CYTOPATHOLOGY REPORT [facility] [employer] Status: Final Status [id number] CLINICAL INFORMATION Last Date of LMP :05/10/2013 Last Pap Date :03/17/2012 Last Pap Result :NIL ABN [place]/Bx Past 5 YRS :None Hormone Usage :None Menstrual Status :Regular Periods [place]/Bx done today :No Additional Information :None given [...] malignant lesions. COLLECTED:06/08/13 ACCESSIONED: 06/09/13 SIGNED: 06/11/13 [facility] PAP [place] CODE NIL [facility] Tissue specimen (specimen) (Cervical/Vagina l) 06/08/2013 2:55 PM CDT 06/08/2013 2:52 PM CDT us Franca Saucedo MD PATHOLOGY/CYTOLOGY [facility] Result [facility] INTERNAL ZIP [id number] [place] [address] from Last 3 Months or Most Recently Relevant to Health Maintenance Additional Health Concerns Infection Onset Date Last Indicated COVID History Comment:COVID+ test result dates: 11/11/20, [place] Patient met COVID clearance criteria on 11/22. [...] 12:48 AM 09/24/2014 1:31 AM Care Teams Supervisor Trust Accounts Relationship Specialty Start Date End Date Franca Saucedo MD [address] [place] [address] PCP - General Family Practice 09/09/18 Bart Cabrera MD [address] [facility] [address] [facility] [address] [place] [address] Endocrinology 10/02/14
[2024-06-01 16:35] LABS: HCO3 VBG 33 mmol/L (21-28); Lactate* 0.7 mmol/L (0.5-1.9); PCO2 VBG 60 mmHG (40-50); PO2 VBG 36.2 mmHG (25-47); pH VBG 7.349 (7.32-7.43)
[2024-06-01 17:16] LABS: PCR FLU A Negative PCR FLU A (Negative); PCR FLU B Negative PCR FLU B (Negative); PCR RSV Negative PCR RSV (Negative); SARS PCR* Negative SARS-CoV-2 (Negative)
[2024-06-01 18:00] LABS: INR 2.67 (0.91-1.10); Prothrombin Time 29.6 Seconds
--- NOTE | 2024-06-01 18:58 | P.IMHP_ITS ---
Assessment and Plan Assessment and plan (1) Acute hypoxemic respiratory failure: Problem comment: - Not dyspneic. I am questioning if this is actually chronic. [facility] records mention hypoxia a year or two ago. She has known IMELDA, pulm HTN, and is morbidly obese. All untreated, patient has been noncompliant with medical care and f/u. I suspect she also has obesity hypoventilation syndrome. Will likely need home oxygen. - Obtain ECHO (last one was in 2021) - Respiratory therapy consulted Status: Acute (2) Hypercapnia: Problem comment: - compensated. Suspect chronically elevated. Use O2 cautiously to avoid worsening hypercapnia. Status: Acute (3) Chest pain: Problem comment: - acute on chronic. h/o PE, Chest CTA neg for large PE, INR therapeutic, but has not had outpatient INRs drawn consistently due to noncompliance. No chest pain at present. May be related to epigastric pain, GI source. Has not had a cardiac w/u for a while. Admit for obs on tele. Obtain ECHO. Repeat trop in am. Will need stress test. While this could happen as an outpatient, due to patient's h/o noncompliance, this could be pursued here if available tomorrow. Status: Acute (4) Upper GI bleed: Problem comment: - Patient reports taste of blood in am in back of mouth and bloody emesis today after getting IV contrast. Also has h/o iron deficiency anemia last year and bloody emesis 2 years ago for which she failed to f/u for EGD. - Check stool hemoccult - Hgb okay at 13.3. MCV low. Recheck Hgb in am. - Start protonix bolus and drip, NPO after MN, EGD tomorrow if available. Status: Acute (5) Epigastric pain: Problem comment: - EGD as above. Will also obtain CT abd/pelvis. Will order this without contrast today due to patient already having IVP dye today. Status: Acute (6) Cardiomegaly: Problem comment: - Seen on CT chest today. Obtain ECHO. Status: Acute (7) Pulmonary hypertension: Problem comment: - Previously known. Likely contributing to hypoxia (of which patient seems unaware, so it is likely chronic). Will likely need oxygen for homegoing and referral to outpatient pulmonology. Status: Chronic (8) Adrenal adenoma: Problem comment: 4/1/25 CT chest: Indeterminate right adrenal nodule measuring 1.3 cm, possibly an adrenal adenoma. Further evaluation may be obtained with a dedicated contrast enhanced CT, adrenal mass protocol. Status: Acute (9) HTN (hypertension): Problem comment: - continue lisinopril Status: Chronic (10) IMELDA (obstructive sleep apnea): Problem comment: - previously known (mentioned in [facility] record). Patient unaware of this diagnosis, so she is not on CPAP. I recommended f/u with billing representative for IMELDA. Status: Chronic (11) Type 2 diabetes mellitus: Problem comment: - obtain HgbA1C - hold glipizide and metformin as patient will be NPO for EGD tomorrow - Cover with ISS Status: Chronic (12) Noncompliance: Problem comment: Per note from her PCP 08/06/23: patient noncompliant with INR clinic follow up. Patient also admits to not having gone in to get INR checked in a very long time. Status: Acute (13) Pulmonary nodules: Problem comment: 06/01/24 CT chest: There are scattered pulmonary nodules measuring up to 7 mm, indeterminate, possibly infectious or inflammatory in etiology. Recommend repeat CT in 3-6 months to assess stability or resolution to exclude underlying neoplasm, with optional additional follow-up CT in 18-24 months, per Fleischner society guidelines. Status: Acute (14) Obesity: Problem comment: BMI 50 Status: Acute (15) Obesity hypoventilation syndrome: Status: Suspected (16) Chronic anticoagulation: Problem comment: - hold warfarin for EGD tomorrow. Status: Chronic Total Time Spent Total Time Spent: Time spent: Today I spent 75 minutes seeing the patient, discussing the patient with ER staff, reviewing [facility]pan[facility] and EPIC notes/diagnostics, discussing the care plan with our care team that includes social work, PT/OT, pharmacy, RT, halfway and documenting my impressions and plan in the medical record. Hospitalist- H&P: HPI History of Present Illness Time Seen by Provider: 18:20 Date Seen: 06/01/24 Chief complaint: chest pain Narrative: Martha Dewitt is a 43 year old female with h/o PE, DM2 came through the ER for intermittent CP for the last 4 days. It lasts for up to an hour, substernal and off to the left chest. It does not radiate to her back, arm or jaw. She feels her heart working hard sometimes and this makes her ears feel full. Denies SOB or h/o asthma. No fever, chills. Occasional stomach pain. Had an emesis today after getting the CT dye (she has had this reaction with IVP dye before). Has the taste of blood in her mouth in the mornings, but has not had emesis at home. This has been going on for years, never had a scope. Epigastric pain for the past few months especially if eating in the evening, so she no longer eats heavy meals after 6pm. Denies RUQ pain, melena, hematachezia. She said she's known that something has been wrong for a while, but she's been scared to come in and get checked out because of what it might be and she wants to be there for her children. Martha denied any h/o IMELDA, pulm HTN, murmur, etc. Other than DM2, she seems unaware of her PMH. Review of Systems Status of ROS: Reports: 10 or more systems reviewed and unremarkable except as noted in History and below [facility] Medical History (Updated 06/01/24 @ 23:01 by Lamar Navarro MD) Noncompliance ?Z91.199 - Patient's noncompliance with other medical treatment and regimen due to unspecified reason (ICD-10) Iron (Fe) deficiency anemia (~08/2023) ?D50.9 - Iron deficiency anemia, unspecified (ICD-10) Recurrent deep vein thrombosis (DVT) (04/26/16) ?I82.409 - Acute embolism and thrombosis of unspecified deep veins of unspecified lower extremity (ICD-10) Pulmonary hypertension (06/06/22) ?I27.20 - Pulmonary hypertension, unspecified (ICD-10) Prolonged PTT (09/24/14) ?R79.1 - Abnormal coagulation profile (ICD-10) Pneumonia due to COVID-19 virus (11/20/20) ?U07.1 - COVID-19 (ICD-10) ?J12.82 - Pneumonia due to coronavirus disease 2019 (ICD-10) Hypercoagulopathy (05/21/18) ?D68.59 - Other primary thrombophilia (ICD-10) HTN (hypertension) (07/10/17) ?I10 - Essential (primary) hypertension (ICD-10) Elevated troponin (09/27/14) ?R79.89 - Other specified abnormal findings of blood chemistry (ICD-10) E coli bacteremia (09/27/14) ?R78.81 - Bacteremia (ICD-10) ?B96.20 - Unspecified Escherichia coli [E. coli] as the cause of diseases classified elsewhere (ICD-10) delivery delivered (09/25/14) ?O82 - Encounter for delivery without indication (ICD-10) Abdominal wall hematoma (11/20/20) ?S30.1XXA - Contusion of abdominal wall, initial encounter (ICD-10) Type 2 diabetes mellitus ?E11.9 - Type 2 diabetes mellitus without complications (ICD-10) Polycystic ovaries ?E28.2 - Polycystic ovarian syndrome (ICD-10) Pulmonary embolism ?I26.99 - Other pulmonary embolism without acute cor pulmonale (ICD-10) IMELDA (obstructive sleep apnea) ?G47.33 - Obstructive sleep apnea (adult) (pediatric) (ICD-10) Morbid obesity with BMI of 60.0-69.9, adult ?E66.01 - Morbid (severe) obesity due to excess calories (ICD-10) ?Z68.44 - Body mass index [BMI] 60.0-69.9, adult (ICD-10) Macrosomia ?P08.0 - Exceptionally large baby (ICD-10) Gonorrhea ?A54.9 - Gonococcal infection, unspecified (ICD-10) wound infection ?O86.00 - Infection of obstetric surgical wound, unspecified (ICD-10) Bacterial vaginosis ?N76.0 - Acute vaginitis (ICD-10) ?B96.89 - Other specified bacterial agents as the cause of diseases classified elsewhere (ICD-10) Surgical History (Updated 06/01/24 @ 22:12 by Lamar Navarro MD) S/P tubal ligation (09/27/14) ?Z98.51 - Tubal ligation status (ICD-10) History of tonsillectomy ?Z90.89 - Acquired absence of other organs (ICD-10) History of section ?Z98.891 - History of uterine scar from previous surgery (ICD-10) Family History (Updated 06/01/24 @ 22:14 by Lamar Navarro MD) Maternal Grandfather Brain tumor Mother Cervical cancer Diabetes Social History (Updated 06/01/24 @ 22:09 by Lamar Navarro MD) Narrative: Smoked for a few months in her 20s. Denies EtOH or drug use. 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 What is your current living situation?: I presently have a place to live Problems where you live: no known problems Problems where you live details: none In the past 12 months, utilities in danger of being shut off: no In past 12 months, lack of transportation kept you from medical appts, meetings, work, or getting things needed for daily living: no In the past 12 mos, have been you worried that your food would run out before you had money to buy more?: never true In the past 12 mos, the food you bought just didn't last and you didn't have money to buy more?: never true Highest level of school completed/degree received: high school graduate Smoking Status: Former smoker Do you use any of these nicotine containing products: None Second hand tobacco smoke exposure: No How often do you have a drink containing alcohol: never How often do you have six or more drinks on one occasion: Never AUDIT-C Alcohol total score: 0 Non-prescribed substance use: denies use Caffeine: Yes (2 cups a day) How often does anyone, including family, friends and others, physically hurt you : never How often does anyone, including family, friends and others, insult or talk down to you: never How often does anyone, including family, friends and others, threaten you with harm: never How often does anyone, including family, friends and others, scream or curse at you: never service: No Meds Home Medications and Allergies Home Medications ?Medication ?Instructions ?Recorded ?Confirmed ?Type glipizide 10 mg tablet 10 mg PO HS 05/04/22 06/01/24 History lisinopril 10 mg tablet 10 mg PO HS 05/04/22 06/01/24 History metformin 1,000 mg tablet 1,000 mg PO HS 05/04/22 06/01/24 History warfarin 4 mg tablet 4 mg PO DIRECTED 05/04/22 06/01/24 History Home Medication Comments: She is supposed to be taking glipizide and metformin BID, but only takes one dose at night. She said she's told her PCP about this. Allergies Allergy/AdvReac Type Severity Reaction Status Date / Time No Known Drug Allergies Allergy Verified 06/01/24 15:37 Exam Narrative: Exam Narrative: General: No acute distress. Awake alert oriented x3. Morbidly obese. HEENT: Normocephalic atraumatic, pupils equally round and reactive to light and accommodation. Oropharynx clear. Mucous membranes are moist. No cervical lymphadenopathy, thyromegaly or carotid bruits. No JVD. Cardiovascular: Regular rate and rhythm. Grade 1/6 systolic murmur loudest at the left lower sternal border. Chest: No increased work of breathing. Clear to auscultation bilaterally. No crackles or wheezes. Abdomen: Bowel sounds present. Soft, nondistended, tender in the epigastrium, no rebound tenderness or guarding. No hepatosplenomegaly or masses. Extremities: No edema, no cyanosis or clubbing. Skin: No jaundice, no pallor, no rashes. Neuro: Grossly intact. No focal deficits. Const: Vital Signs, click to edit/add: Vital Signs - 24 hr 06/01/24 13:47 06/01/24 13:54 06/01/24 14:04 Temperature 97.6 F Pulse Rate 94 Pulse Rate [Right Pulse Oximeter] 92 Pulse Rate [Right Radial] Respiratory Rate 28 H Blood Pressure Blood Pressure [Ri ght Arm] Blood Pressure [Ri ght Forearm] 144/65 H Pulse Oximetry 81 L 92 92 Oxygen Delivery Me thod Room Air Nasal Cannula Oxygen Flow Rate 2 06/01/24 14:15 06/01/24 14:17 06/01/24 14:30 Temperature Pulse Rate 88 86 84 Pulse Rate [Right Pulse Oximeter] Pulse Rate [Right Radial] Respiratory Rate 25 H 15 24 Blood Pressure 133/65 Blood Pressure [Ri ght Arm] Blood Pressure [Ri ght Forearm] Pulse Oximetry 92 94 92 Oxygen Delivery Me thod Oxygen Flow Rate 06/01/24 14:32 06/01/24 14:45 06/01/24 15:00 Temperature Pulse Rate 84 82 81 Pulse Rate [Right Pulse Oximeter] Pulse Rate [Right Radial] Respiratory Rate 17 Blood Pressure 125/75 Blood Pressure [Ri ght Arm] Blood Pressure [Ri ght Forearm] Pulse Oximetry 92 96 93 Oxygen Delivery Me thod Oxygen Flow Rate 06/01/24 15:02 06/01/24 15:15 06/01/24 15:43 Temperature Pulse Rate 83 81 89 Pulse Rate [Right Pulse Oximeter] Pulse Rate [Right Radial] Respiratory Rate 14 Blood Pressure 134/69 Blood Pressure [Ri ght Arm] Blood Pressure [Ri ght Forearm] Pulse Oximetry 91 93 94 Oxygen Delivery Me thod Oxygen Flow Rate 06/01/24 15:45 06/01/24 16:00 06/01/24 16:02 Temperature Pulse Rate 89 85 83 Pulse Rate [Right Pulse Oximeter] Pulse Rate [Right Radial] Respiratory Rate 18 Blood Pressure 134/63 Blood Pressure [Ri ght Arm] Blood Pressure [Ri ght Forearm] Pulse Oximetry 94 90 92 Oxygen Delivery Me thod Oxygen Flow Rate 06/01/24 16:03 06/01/24 16:15 06/01/24 16:30 Temperature Pulse Rate 85 84 83 Pulse Rate [Right Pulse Oximeter] Pulse Rate [Right Radial] Respiratory Rate Blood Pressure Blood Pressure [Ri ght Arm] Blood Pressure [Ri ght Forearm] Pulse Oximetry 90 90 91 Oxygen Delivery Me thod Oxygen Flow Rate 06/01/24 16:32 06/01/24 16:34 06/01/24 17:18 Temperature Pulse Rate 75 83 96 Pulse Rate [Right Pulse Oximeter] Pulse Rate [Right Radial] Respiratory Rate Blood Pressure 142/74 H Blood Pressure [Ri ght Arm] Blood Pressure [Ri ght Forearm] Pulse Oximetry 94 92 69 L Oxygen Delivery Me thod Room Air Oxygen Flow Rate 06/01/24 17:30 06/01/24 17:32 06/01/24 17:45 Temperature Pulse Rate 80 79 81 Pulse Rate [Right Pulse Oximeter] Pulse Rate [Right Radial] Respiratory Rate Blood Pressure 146/68 H Blood Pressure [Ri ght Arm] Blood Pressure [Ri ght Forearm] Pulse Oximetry 89 85 L 91 Oxygen Delivery Me thod Oxygen Flow Rate 06/01/24 18:13 Temperature 98.9 F Pulse Rate Pulse Rate [Right Pulse Oximeter] Pulse Rate [Right Radial] 81 Respiratory Rate 22 Blood Pressure Blood Pressure [Ri ght Arm] 145/72 H Blood Pressure [Ri ght Forearm] Pulse Oximetry 84 L Oxygen Delivery Me thod Room Air Oxygen Flow Rate Hospitalist - H&P: Result Labs Labs: Short CBC 06/01/24 Range/Units 14:17 WBC 7.08 (4.50-11.00) K/uL Hgb 13.3 (12.0-16.0) gm/dL Hct 47.8 (33.0-51.0) % Plt Count 208 (140-440) K/uL BMP 06/01/24 14:17 Sodium 137 Potassium 4.4 Chloride 100 Carbon Dioxide 32 BUN 10 Creatinine 0.5 Glucose 165 H Calcium 8.9 Cardiac Enzymes 06/01/24 Range/Units 14:17 Troponin I < 0.01 (0.01-0.04) ng/mL 06/01/2024 EKG: Normal sinus rhythm, 91 beats per minute, left anterior fascicular block. Ordering Physician: Rolando Reyes M.D. Date of Service: 06/01/24 Procedure(s): CT angio chest PE protocol Accession Number(s): [id number] cc: Rolando Reyes M.D.; Franca Saucedo M.D.~ For Patients: As a result of the Century Cures Act, medical imaging exams and procedure reports are released immediately into your electronic medical record. You may view this report before your referring provider. If you have questions, please contact your health care provider. INDICATION: Dyspnea. Chest pain. TECHNIQUE: Multiplanar CT pulmonary angiogram was performed after the administration of 95 mL of Isovue 370 intravenous contrast. COMPARISON: Chest radiograph 08/09/2021. FINDINGS: Patient body habitus limits evaluation. Lower neck: The visualized thyroid is unremarkable. Cardiovascular: Suboptimal contrast opacification and photopenic artifact limits evaluation for distal pulmonary emboli. Cardiomegaly. The thoracic aorta is normal in caliber. Mildly dilated main pulmonary artery measuring 4.1 cm. Mild atherosclerotic calcifications of the aortic arch. Coronary arterial calcifications. No large central pulmonary embolus. Mediastinum and lymph nodes: Prominent mediastinal lymph nodes, probably reactive. Lungs: No focal consolidation. Dependent atelectasis. Linear bandlike opacification of the lung bases bilaterally, likely subsegmental atelectasis and/or scarring. Mild pulmonary vascular congestion. Mosaic attenuation pattern opacification diffusely, possibly small airways or small vessels disease. There are scattered subcentimeter pulmonary nodules, largest is a right lower lobe pulmonary nodule measuring 7 mm (5:117). Airways: The trachea remains patent and midline. Mild diffuse peribronchial wall thickening. Pleura: No pleural effusions or pneumothorax. Chest wall: Unremarkable. Prominent axillary lymph nodes that do not meet size criteria for lymphadenopathy. Bones: No acute osseous abnormalities. Mild degenerative changes of the thoracic spine. Upper abdomen: No acute findings in the visualized upper abdomen. No reflux of contrast material into the IVC. 1.3 cm right adrenal nodule. IMPRESSION: 1. Limited evaluation due to photopenic artifact. 2. No large central pulmonary embolus. 3. There are scattered pulmonary nodules measuring up to 7 mm, indeterminate, possibly infectious or inflammatory in etiology. Recommend repeat CT in 3-6 months to assess stability or resolution to exclude underlying neoplasm, with optional additional follow-up CT in 18-24 months, per Fleischner society guidelines. 4. A dilated main pulmonary artery measuring 4.1 cm, nonspecific can be seen in setting of pulmonary arterial hypertension. 5. Cardiomegaly with mild pulmonary vascular congestion. 6. Indeterminate right adrenal nodule measuring 1.3 cm, possibly an adrenal adenoma. Further evaluation may be obtained with a dedicated contrast enhanced CT, adrenal mass protocol. Please note that all CT scans at this facility use dose modulation, iterative reconstruction, and/or weight-based dosing when appropriate to reduce radiation dose to as low as reasonably achievable. Dictated by Rafi Adame MD @ 06/01/2024 3:58:45 PM (Electronically Signed) Ordering Physician: Lamar Navarro M.D. Date of Service: 06/01/24 Procedure(s): CT abdomen pelvis wo [facility] Accession Number(s): [id number] cc: Lamar Navarro M.D.; Franca Saucedo M.D.~ For Patients: As a result of the 21st Century Cures Act, medical imaging exams and procedure reports are released immediately into your electronic medical record. You may view this report before your referring provider. If you have questions, please contact your health care provider. INDICATION: Abdominal pain. TECHNIQUE: Multiplanar CT examination of the abdomen and pelvis was performed without the use of intravenous contrast. COMPARISON: CT pelvis 05/05/2022. FINDINGS: Patient body habitus limits evaluation. Lower chest: No focal consolidation. Mildly enlarged heart size. Mosaic attenuation pattern of opacification, suggestive of small airway/vessel disease. No pleural effusions or pneumothorax. Subsegmental atelectasis. Small hiatal hernia. Liver: Hepatomegaly. Gallbladder: Unremarkable. Biliary: Unremarkable. Pancreas: Within normal limits. Spleen: Unremarkable. Adrenal glands: 1.6 cm hypodense right adrenal nodule. Renal/ureters/bladder: Excreted contrast material in the collecting system, from a prior examination performed earlier the same day. Normal in size. No obstructive uropathy. No hydronephrosis or obstructive urinary calculi. The ureters appear unremarkable. The opacified bladder appears within normal limits. The renal parenchyma is nonenhanced, evaluation for renal masses is limited on this noncontrast examination. Pelvis: Unremarkable uterus. No adnexal masses. Gastrointestinal: No bowel wall thickening or bowel obstruction. Normal appendix. No significant colonic diverticulosis. Mild colonic stool burden. Vasculature: No aortic aneurysm. No significant atherosclerotic calcifications. Lymph nodes: No pathologic lymphadenopathy by size criteria. Peritoneum: No free fluid or pneumoperitoneum. No drainable fluid collections. Abdominal wall/soft tissues: Large fat containing ventral abdominal hernia defects, grossly unchanged. Bones: No acute osseous abnormalities. IMPRESSION: 1. No acute abdominopelvic findings. 2. Limited evaluation for gastrointestinal hemorrhage on this noncontrast examination. No large volume of minerva hemorrhagic blood product identified. 3. 1.6 cm right adrenal nodule, possibly an adrenal adenoma. Consider further evaluation with a nonemergent, outpatient CT adrenal mass protocol to evaluate for underlying neoplasm. 4. Grossly unchanged large ventral abdominal fat containing hernias. Please note that all CT scans at this facility use dose modulation, iterative reconstruction, and/or weight-based dosing when appropriate to reduce radiation dose to as low as reasonably achievable. Dictated by Rafi Adame MD @ 06/01/2024 8:57:12 PM (Electronically Signed)
--- NOTE | 2024-06-01 19:39 | CRLHL7_ITS ---
For Patients: As a result of the Century Cures Act, medical imaging exams and procedure reports are released immediately into your electronic medical record. You may view this report before your referring provider. If you have questions, please contact your health care provider. INDICATION: Abdominal pain. TECHNIQUE: Multiplanar CT examination of the abdomen and pelvis was performed without the use of intravenous contrast. COMPARISON: CT pelvis 05/05/2022. FINDINGS: Patient body habitus limits evaluation. Lower chest: No focal consolidation. Mildly enlarged heart size. Mosaic attenuation pattern of opacification, suggestive of small airway/vessel disease. No pleural effusions or pneumothorax. Subsegmental atelectasis. Small hiatal hernia. Liver: Hepatomegaly. Gallbladder: Unremarkable. Biliary: Unremarkable. Pancreas: Within normal limits. Spleen: Unremarkable. Adrenal glands: 1.6 cm hypodense right adrenal nodule. Renal/ureters/bladder: Excreted contrast material in the collecting system, from a prior examination performed earlier the same day. Normal in size. No obstructive uropathy. No hydronephrosis or obstructive urinary calculi. The ureters appear unremarkable. The opacified bladder appears within normal limits. The renal parenchyma is nonenhanced, evaluation for renal masses is limited on this noncontrast examination. Pelvis: Unremarkable uterus. No adnexal masses. Gastrointestinal: No bowel wall thickening or bowel obstruction. Normal appendix. No significant colonic diverticulosis. Mild colonic stool burden. Vasculature: No aortic aneurysm. No significant atherosclerotic calcifications. Lymph nodes: No pathologic lymphadenopathy by size criteria. Peritoneum: No free fluid or pneumoperitoneum. No drainable fluid collections. Abdominal wall/soft tissues: Large fat containing ventral abdominal hernia defects, grossly unchanged. Bones: No acute osseous abnormalities. IMPRESSION: 1. No acute abdominopelvic findings. 2. Limited evaluation for gastrointestinal hemorrhage on this noncontrast examination. No large volume of minerva hemorrhagic blood product identified. 3. 1.6 cm right adrenal nodule, possibly an adrenal adenoma. Consider further evaluation with a nonemergent, outpatient CT adrenal mass protocol to evaluate for underlying neoplasm. 4. Grossly unchanged large ventral abdominal fat containing hernias. Please note that all CT scans at this facility use dose modulation, iterative reconstruction, and/or weight-based dosing when appropriate to reduce radiation dose to as low as reasonably achievable. Dictated by Rafi Adame MD @ 06/01/2024 8:57:12 PM (Electronically Signed)
[2024-06-01] MEDS: lisinopriL 10 MG TABLET PO (20:32)
[2024-06-01] MEDS: PANTOPRAZOLE SODIUM 40 MG INJ IVP (20:32)
[2024-06-01] MEDS: SODIUM CHLORIDE 0.9 % (FLUSH) 10 ML SYRINGE 5 ML IVF (20:32)
[2024-06-01 20:36] LABS: Albumin* 3.7 g/dL (3.3-5.0)
[2024-06-01 20:39] LABS: Alanine Aminotransferase* 24 U/L (4-35); Alkaline Phosphatase* 85 U/L (40-150); Aspartate Amino Transferase* 50 U/L (12-35); Bilirubin Direct* 0.2 mg/dL (0.0-0.5); Bilirubin Total* 0.6 mg/dL (0.1-1.5); Lipase* 47 U/L (23-300); Total Protein* 6.4 g/dL (6.0-8.3)
[2024-06-01] MEDS: INSULIN ASPART 100 UNIT/ML SUBCUT (22:30)
--- NOTE | 2024-06-01 22:48 | PC.NURSE ---
End of Shift: Patient pleasant and cooperative. Afebrile. O2 sats 88% on 1.5L while awake. Sats decrease to 75-85% while sleeping on 1.5L, MD aware. Denies pain. Up with SBA. Tolerating regular diet with no nausea.
[2024-06-02] VITALS (7 sets, daily range): BP systolic 115–140; BP diastolic 54–99; PULSE 71–84; RESP 18–24; TEMP 36.4–37.4; O2SAT 80–92
--- NOTE | 2024-06-02 06:09 | PC.NURSE ---
End of shift note [id number]: Pt A&Ox 4 and able to make needs known. She has denied pain when asked throughout the shift with no N/V noted. Pt transfers/ambulates with SBA. She has been afebrile and on oxygen at 1.5 LPM via NC throughout the shift. Pt requested to sleep wearing pants and slept most of shift in recliner per request. Product Controller offered to assist pt with washing up at HS though pt refused when approached/encouraged. She is NPO in preparation for EGD today and also has ECHO ordered. Tele in place with NSR noted. Call light within reach. ?
[2024-06-02 06:41] LABS: HCO3 VBG 35 mmol/L (21-28); PO2 VBG 34.2 mmHG (25-47)
[2024-06-02 06:42] LABS: Basophils Percent Auto 0.3 % (0.0-3.0); Eosinophils Percent Auto 2.6 % (0.0-7.0); Hematocrit* 47.8 % (33.0-51.0); Hemoglobin* 13.1 gm/dL (12.0-16.0); Immature Granulocytes Pct Auto 0.9 %; Lymphocytes Percent Auto 19.7 % (20-44); Mean Corpuscular HGB Conc 27 gm/dL (32-36); Mean Corpuscular Hemoglobin 22 pg (26-34); Mean Corpuscular Volume 79 fL (80-100); Monocytes Percent Auto 7.8 % (0.0-11.0); Neutrophils Percent Auto 68.7 % (42.0-72.0); Platelet Count* 184 K/uL (140-440); RDW Coefficient of Variation % 18.6 % (11.5-15.5); Red Blood Count* 6.07 m/uL (4.00-5.20); White Blood Count* 7.05 K/uL (4.50-11.00)
[2024-06-02 06:50] LABS: PCO2 VBG 83 mmHG (40-50); pH VBG 7.231 (7.32-7.43)
[2024-06-02 07:03] LABS: INR 2.53 (0.91-1.10); Prothrombin Time 28.4 Seconds
[2024-06-02 07:15] LABS: Chloride* 99 mmol/L (96-114); Potassium* 5.4 mmol/L (3.6-5.1); Sodium* 136 mmol/L (135-149)
[2024-06-02 07:18] LABS: Alanine Aminotransferase* 24 U/L (4-35); Alkaline Phosphatase* 80 U/L (40-150); Anion Gap 2 mEq/L (7-15); Aspartate Amino Transferase* 30 U/L (12-35); Bilirubin Total* 0.8 mg/dL (0.1-1.5); Blood Urea Nitrogen* 11 mg/dL (5-24); Carbon Dioxide* 35 mmol/L (20-32); Creatinine* 0.6 mg/dL (0.5-1.5); Est. Creatinine Clearance* 115.51; Estimated Glomerular Filt Rate 116 ml/min
[2024-06-02 07:19] LABS: Calcium* 8.8 mg/dL (8.4-10.6); Glucose* 156 mg/dL (60-115)
[2024-06-02 07:28] LABS: Hemoglobin A1C* 8.5 % (0-5.6)
[2024-06-02 07:37] LABS: Troponin I* < 0.01 ng/mL (0.01-0.04)
[2024-06-02 07:46] LABS: Slide Review Reflex Yes
[2024-06-02 07:51] LABS: Corrected White Blood Count 6.61 K/UL (4.50-11.00)
[2024-06-02 07:52] LABS: Slide Review Acceptable Review (Acceptable)
--- NOTE | 2024-06-02 09:45 | PM.IMPN1 ---
Assessment and Plan Assessment and plan (1) Acute hypoxemic respiratory failure: Problem comment: - Not dyspneic. I am questioning if this is actually chronic. [facility] records mention hypoxia a year or two ago. She has known IMELDA, pulm HTN, and is morbidly obese. All untreated, patient has been noncompliant with medical care and f/u. I suspect she also has obesity hypoventilation syndrome. Will likely need home oxygen. - Obtain ECHO (last one was in 2021) - Respiratory therapy consulted - 06/02/2024: appears to have acute on chronic hypoxic hypercapnic respiratory failure in association with untreated obstructive sleep apnea, untreated pulmonary hypertension, morbid obesity, obesity associated hypoventilation syndrome. Continue to work with respiratory therapy here in the hospital to optimize management as much as possible. Warrants outpatient assessment and intervention for these various constituents diagnoses. Status: Acute (2) Hypercapnia: Problem comment: - compensated. Suspect chronically elevated. Use O2 cautiously to avoid worsening hypercapnia. - monitor venous blood gas and oxygen saturations. Use end-tidal CO2 monitoring if warranted. Status: Acute (3) Chest pain: Problem comment: - acute on chronic. h/o PE, Chest CTA neg for large PE, INR therapeutic, but has not had outpatient INRs drawn consistently due to noncompliance. No chest pain at present. May be related to epigastric pain, GI source. Has not had a cardiac w/u for a while. Admit for obs on tele. Obtain ECHO. Repeat trop in am. Will need stress test. While this could happen as an outpatient. Status: Acute (4) Upper GI bleed: Problem comment: - Patient reports taste of blood in am in back of mouth and bloody emesis today after getting IV contrast. Also has h/o iron deficiency anemia last year and bloody emesis 2 years ago for which she failed to f/u for EGD. - Check stool hemoccult - Hgb okay at 13.3. MCV low. Recheck Hgb in am. - Start protonix bolus and drip, NPO after MN, EGD tomorrow if available. - 06/02/2024: Obtain stool for Helicobacter pylori. Switch from IV to oral PPI. I reviewed with our Anesthesiology staff and agree that she is not a safe candidate for an EGD in our [facility] hospital given her elevated cardiopulmonary risks. May need to consider referral elsewhere if this is still needed. Await result of Helicobacter pylori antigen study. Clear liquid diet for now. Advance diet as tolerated. Status: Acute (5) Epigastric pain: Problem comment: - EGD as above. Will also obtain CT abd/pelvis. Will order this without contrast today due to patient already having IVP dye today. - 06/02/2024: Risk for EGD too high for us to be doing an EGD in our [facility] hospital. Reviewed with Anesthesiology. Status: Acute (6) Cardiomegaly: Problem comment: - Seen on CT chest today. Obtain ECHO. Status: Acute (7) Pulmonary hypertension: Problem comment: - Previously known. Likely contributing to hypoxia (of which patient seems unaware, so it is likely chronic). Will likely need oxygen for homegoing and referral to outpatient pulmonology. Status: Chronic (8) Adrenal adenoma: Problem comment: 06/01/24 CT chest: Indeterminate right adrenal nodule measuring 1.3 cm, possibly an adrenal adenoma. Further evaluation may be obtained with a dedicated contrast enhanced CT, adrenal mass protocol. Status: Acute (9) HTN (hypertension): Problem comment: - continue lisinopril Status: Chronic (10) IMELDA (obstructive sleep apnea): Problem comment: - previously known (mentioned in [facility] record). Patient unaware of this diagnosis, so she is not on CPAP. I recommended f/u with silk crepe machine operator for IMELDA. - initiated discussion regarding sleep study as well as assessment for bariatric surgery. Status: Chronic (11) Type 2 diabetes mellitus: Problem comment: - obtain HgbA1C - hold glipizide and metformin as patient will be NPO for EGD tomorrow - Cover with ISS Status: Chronic (12) Noncompliance: Problem comment: - Per note from her PCP 08/06/23: patient noncompliant with INR clinic follow up. - Patient also admits to not having gone in to get INR checked in a very long time. - 06/02/2024: noncompliant with multiple medical conditions and recommendations. Initiated dialogue with patient about her short and long-term healthcare goals. She states her motivation to care for herself is to be around 4 children. Status: Acute (13) Pulmonary nodules: Problem comment: 06/01/24 CT chest: There are scattered pulmonary nodules measuring up to 7 mm, indeterminate, possibly infectious or inflammatory in etiology. Recommend repeat CT in 3-6 months to assess stability or resolution to exclude underlying neoplasm, with optional additional follow-up CT in 18-24 months, per Fleischner society guidelines. Status: Acute (14) Obesity: Problem comment: BMI 50 Status: Acute (15) Obesity hypoventilation syndrome: Status: Suspected (16) Chronic anticoagulation: Problem comment: - hold warfarin for EGD tomorrow. - 06/02/2024: Will not do EGD here in our [facility] hospital due to high risk. Reviewed the same with Anesthesiology who agrees. May consider resumption of warfarin starting tomorrow. Status: Chronic (17) History of pulmonary embolus (PE): Problem comment: - 5 days status post , 2007 - chronically anticoagulated on warfarin, with INR goal 2-3 Status: Acute (18) History of recurrent deep vein thrombosis (DVT): Problem comment: - chronically anticoagulated on warfarin with INR goal of 2-3 Status: Acute (19) Abdominal obesity and metabolic syndrome: Status: Acute Plan 1. Reviewed impression, recommendations, plans with patient. 2. Answered her questions are satisfaction. 3. Patient agreeable with above stated plans and recommendations Total Time Spent Total Time Spent: 70 minutes Subjective Date Seen: 06/02/24 Interval history: Admission history of present illness: ?43 year old female with h/o PE, DM2 came through the ER for intermittent CP for the last 4 days. It lasts for up to an hour, substernal and off to the left chest. It does not radiate to her back, arm or jaw. She feels her heart working hard sometimes and this makes her ears feel full. Denies SOB or h/o asthma. No fever, chills. Occasional stomach pain. Had an emesis today after getting the CT dye (she has had this reaction with IVP dye before). Has the taste of blood in her mouth in the mornings, but has not had emesis at home. This has been going on for years, never had a scope. Epigastric pain for the past few months especially if eating in the evening, so she no longer eats heavy meals after 6pm. Denies RUQ pain, melena, hematachezia. She said she's known that something has been wrong for a while, but she's been scared to come in and get checked out because of what it might be and she wants to be there for her children. ?Martha denied any h/o IMELDA, pulm HTN, murmur, etc. Other than DM2, she seems unaware of her PMH.? Hospital day 2 (06/02/2024): No overt blood loss. Describes intermittent episodes of chest discomfort over the last several days. Typically has breakfast around 10:00 in the morning. Discomfort typically occurs 1-2 hours after eating. May occur at other times during the day, but most consistently 1-2 hours after eating her morning meal. Generally resolves within 20 minutes although has lasted as long as 40 minutes. Denies any change in baseline level of dyspnea with these efforts. Over the last few weeks has noticed increased sense of dyspnea with exertion. Denies paroxysmal nocturnal dyspnea. Denies orthopnea. Denies dyspnea at rest. Denies syncope or near-syncope. Denies nausea or vomiting per se, except for yesterday after CT scan with dye. Interestingly she believes she may have a taste of blood in her mouth sometimes when she awakens in the morning. She tells me how over the last several weeks she has increasing hypersomnolence throughout the day despite sleeping. Awakens not feeling refreshed from sleeping. Carries out a few chores around the house and then naps much of the day. Sleeping off and on throughout the night. Sleeps on her side much of the time. Acknowledges snoring. Unaware if she has apnea. Still driving a car, but for the past few days has elected not to drive due to her sense of sleepiness. Exam Const: Vital Signs, click to edit/add: Vital Signs - 24 hr 06/01/24 13:47 06/01/24 13:54 06/01/24 14:04 Temperature 97.6 F Pulse Rate 94 Pulse Rate [Right Pulse Oximeter] 92 Pulse Rate [Right Radial] Respiratory Rate 28 H Blood Pressure Blood Pressure [R forearm] Blood Pressure [Ri ght Arm] Blood Pressure [Ri ght Forearm] 144/65 H Pulse Oximetry 81 L 92 92 Oxygen Delivery Me thod Room Air Nasal Cannula Oxygen Flow Rate 2 06/01/24 14:15 06/01/24 14:17 06/01/24 14:30 Temperature Pulse Rate 88 86 84 Pulse Rate [Right Pulse Oximeter] Pulse Rate [Right Radial] Respiratory Rate 25 H 15 24 Blood Pressure 133/65 Blood Pressure [R forearm] Blood Pressure [Ri ght Arm] Blood Pressure [Ri ght Forearm] Pulse Oximetry 92 94 92 Oxygen Delivery Me thod Oxygen Flow Rate 06/01/24 14:32 06/01/24 14:45 06/01/24 15:00 Temperature Pulse Rate 84 82 81 Pulse Rate [Right Pulse Oximeter] Pulse Rate [Right Radial] Respiratory Rate 17 Blood Pressure 125/75 Blood Pressure [R forearm] Blood Pressure [Ri ght Arm] Blood Pressure [Ri ght Forearm] Pulse Oximetry 92 96 93 Oxygen Delivery Me thod Oxygen Flow Rate 06/01/24 15:02 06/01/24 15:15 06/01/24 15:43 Temperature Pulse Rate 83 81 89 Pulse Rate [Right Pulse Oximeter] Pulse Rate [Right Radial] Respiratory Rate 14 Blood Pressure 134/69 Blood Pressure [R forearm] Blood Pressure [Ri ght Arm] Blood Pressure [Ri ght Forearm] Pulse Oximetry 91 93 94 Oxygen Delivery Me thod Oxygen Flow Rate 06/01/24 15:45 06/01/24 16:00 06/01/24 16:02 Temperature Pulse Rate 89 85 83 Pulse Rate [Right Pulse Oximeter] Pulse Rate [Right Radial] Respiratory Rate 18 Blood Pressure 134/63 Blood Pressure [R forearm] Blood Pressure [Ri ght Arm] Blood Pressure [Ri ght Forearm] Pulse Oximetry 94 90 92 Oxygen Delivery Me thod Oxygen Flow Rate 06/01/24 16:03 06/01/24 16:15 06/01/24 16:30 Temperature Pulse Rate 85 84 83 Pulse Rate [Right Pulse Oximeter] Pulse Rate [Right Radial] Respiratory Rate Blood Pressure Blood Pressure [R forearm] Blood Pressure [Ri ght Arm] Blood Pressure [Ri ght Forearm] Pulse Oximetry 90 90 91 Oxygen Delivery Me thod Oxygen Flow Rate 06/01/24 16:32 06/01/24 16:34 06/01/24 17:18 Temperature Pulse Rate 75 83 96 Pulse Rate [Right Pulse Oximeter] Pulse Rate [Right Radial] Respiratory Rate Blood Pressure 142/74 H Blood Pressure [R forearm] Blood Pressure [Ri ght Arm] Blood Pressure [Ri ght Forearm] Pulse Oximetry 94 92 69 L Oxygen Delivery Me thod Room Air Oxygen Flow Rate 06/01/24 17:30 06/01/24 17:32 06/01/24 17:45 Temperature Pulse Rate 80 79 81 Pulse Rate [Right Pulse Oximeter] Pulse Rate [Right Radial] Respiratory Rate Blood Pressure 146/68 H Blood Pressure [R forearm] Blood Pressure [Ri ght Arm] Blood Pressure [Ri ght Forearm] Pulse Oximetry 89 85 L 91 Oxygen Delivery Me thod Oxygen Flow Rate 06/01/24 18:13 06/01/24 19:58 06/01/24 23:00 Temperature 98.9 F 98.7 F Pulse Rate Pulse Rate [Right Pulse Oximeter] Pulse Rate [Right Radial] 81 83 Respiratory Rate 22 20 Blood Pressure Blood Pressure [R forearm] Blood Pressure [Ri ght Arm] 145/72 H 138/69 Blood Pressure [Ri ght Forearm] Pulse Oximetry 84 L 88 92 Oxygen Delivery Me thod Room Air Nasal Cannula Oxygen Flow Rate 1.5 06/01/24 23:00 06/01/24 23:00 06/01/24 23:00 Temperature 98.7 F Pulse Rate Pulse Rate [Right Pulse Oximeter] Pulse Rate [Right Radial] 87 87 Respiratory Rate 24 24 24 Blood Pressure Blood Pressure [R forearm] 150/70 H Blood Pressure [Ri ght Arm] Blood Pressure [Ri ght Forearm] Pulse Oximetry 92 92 Oxygen Delivery Me thod Nasal Cannula Nasal Cannula Oxygen Flow Rate 1.5 1.5 06/01/24 23:02 06/02/24 03:00 06/02/24 06:57 Temperature 98.9 F Pulse Rate 86 72 Pulse Rate [Right Pulse Oximeter] Pulse Rate [Right Radial] 81 Respiratory Rate 20 Blood Pressure Blood Pressure [R forearm] Blood Pressure [Ri ght Arm] 132/66 Blood Pressure [Ri ght Forearm] Pulse Oximetry 88 Oxygen Delivery Me thod Nasal Cannula Oxygen Flow Rate 1.5 Labs Labs: Laboratory Results - last 24 hr 06/01/24 06/01/24 06/01/24 14:17 16:26 16:30 WBC 7.08 Corrected WBC RBC 6.24 H Hgb 13.3 Hct 47.8 MCV 77 L MCH 21 L MCHC 28 L RDW Coeff of Ernesto 18.6 H Plt Count 208 Neut % (Auto) 71.4 Lymph % (Auto) 19.1 L [place] % (Auto) 6.9 Eos % (Auto) 1.8 Baso % (Auto) 0.1 Neut # (Auto) 5.05 Lymph # (Auto) 1.40 [place] # (Auto) 0.50 Eos # (Auto) 0.13 Baso # (Auto) 0.01 Abs Immat Gran (auto) 0.05 Imm/Tot Granulo (auto) 0.7 Diff Slide Review INR 2.67 H D-Dimer Quant (PE/DVT) < 0.22 VBG pH 7.349 VBG pCO2 60 H VBG pO2 36.2 VBG HCO3 33 H Sodium 137 Potassium 4.4 Chloride 100 Carbon Dioxide 32 Anion Gap 5 L BUN 10 Creatinine 0.5 Estimated Creat Clear 143.99 Estimated GFR 121 Glucose 165 H Hemoglobin A1c Lactate 0.7 Calcium 8.9 Total Bilirubin 0.6 Direct Bilirubin 0.2 AST 50 H ALT 24 Alkaline Phosphatase 85 Troponin I < 0.01 NT-Pro-B Natriuret Pep 300 Total Protein 6.4 Albumin 3.7 Lipase 47 TSH 2.400 SARS-CoV-2 (PCR) Negative SARS-CoV-2 Influenza Type A (PCR) Negative PCR FLU A Influenza Type B (PCR) Negative PCR FLU B RSV (PCR) Negative PCR RSV Lab Acknowledgement POC Troponin I 0.01 06/01/24 06/01/24 06/02/24 17:39 19:39 06:06 WBC 7.05 Corrected WBC 6.61 RBC 6.07 H Hgb 13.1 Hct 47.8 MCV 79 L MCH 22 L MCHC 27 L RDW Coeff of Ernesto 18.6 H Plt Count 184 Neut % (Auto) 68.7 Lymph % (Auto) 19.7 L [place] % (Auto) 7.8 Eos % (Auto) 2.6 Baso % (Auto) 0.3 Neut # (Auto) 4.50 Lymph # (Auto) 1.30 [place] # (Auto) 0.50 Eos # (Auto) 0.20 Baso # (Auto) 0.00 Abs Immat Gran (auto) 0.10 Imm/Tot Granulo (auto) 0.9 Diff Slide Review Acceptable Review INR 2.53 H D-Dimer Quant (PE/DVT) VBG pH 7.231 L* VBG pCO2 83 H* VBG pO2 34.2 VBG HCO3 35 H Sodium 136 Potassium 5.4 H Chloride 99 Carbon Dioxide 35 H Anion Gap 2 L BUN 11 Creatinine 0.6 Estimated Creat Clear 115.51 Estimated GFR 116 Glucose 156 H Hemoglobin A1c 8.5 H Lactate Calcium 8.8 Total Bilirubin 0.8 Direct Bilirubin AST 30 ALT 24 Alkaline Phosphatase 80 Troponin I < 0.01 NT-Pro-B Natriuret Pep Total Protein 7.0 Albumin 4.0 Lipase TSH SARS-CoV-2 (PCR) Influenza Type A (PCR) Influenza Type B (PCR) RSV (PCR) Lab Acknowledgement Test Added Test Added POC Troponin I Imaging CT scan of abdomen and pelvis: Attestation: I have reviewed the pertinent imaging results. Radiologist's impression: FINDINGS: Patient body habitus limits evaluation. Lower chest: No focal consolidation. Mildly enlarged heart size. Mosaic attenuation pattern of opacification, suggestive of small airway/vessel disease. No pleural effusions or pneumothorax. Subsegmental atelectasis. Small hiatal hernia. Liver: Hepatomegaly. Gallbladder: Unremarkable. Biliary: Unremarkable. Pancreas: Within normal limits. Spleen: Unremarkable. Adrenal glands: 1.6 cm hypodense right adrenal nodule. Renal/ureters/bladder: Excreted contrast material in the collecting system, from a prior examination performed earlier the same day. Normal in size. No obstructive uropathy. No hydronephrosis or obstructive urinary calculi. The ureters appear unremarkable. The opacified bladder appears within normal limits. The renal parenchyma is nonenhanced, evaluation for renal masses is limited on this noncontrast examination. Pelvis: Unremarkable uterus. No adnexal masses. Gastrointestinal: No bowel wall thickening or bowel obstruction. Normal appendix. No significant colonic diverticulosis. Mild colonic stool burden. Vasculature: No aortic aneurysm. No significant atherosclerotic calcifications. Lymph nodes: No pathologic lymphadenopathy by size criteria. Peritoneum: No free fluid or pneumoperitoneum. No drainable fluid collections. Abdominal wall/soft tissues: Large fat containing ventral abdominal hernia defects, grossly unchanged. Bones: No acute osseous abnormalities. IMPRESSION: 1. No acute abdominopelvic findings. 2. Limited evaluation for gastrointestinal hemorrhage on this noncontrast examination. No large volume of minerva hemorrhagic blood product identified. 3. 1.6 cm right adrenal nodule, possibly an adrenal adenoma. Consider further evaluation with a nonemergent, outpatient CT adrenal mass protocol to evaluate for underlying neoplasm. 4. Grossly unchanged large ventral abdominal fat containing hernias. I reviewed the CT scan with our radiologist who measured the density of the liver and spleen, comparing the hounsfield values. He indicates that there is mild hepatic steatosis measurable on this CT scan.
[2024-06-02 10:16] LABS: HCO3 VBG 35 mmol/L (21-28); PO2 VBG < 30.1 mmHG (25-47); pH VBG 7.306 (7.32-7.43)
[2024-06-02 10:20] LABS: PCO2 VBG 69 mmHG (40-50)
[2024-06-02] MEDS: SODIUM CHLORIDE 0.9 % (FLUSH) 10 ML SYRINGE 5 ML IVF ×2 (14:13→21:34)
--- NOTE | 2024-06-02 14:36 | RESP.RT ---
Patient remains on 1 lpm nasal cannula with spo2 of 90%. VBG with CO2 trending downward.
--- NOTE | 2024-06-02 14:40 | PC.NURSE ---
End of shift. pt has been very pleasant. Pt A&Ox 4 and able to make needs known. She has denied pain. Pt transfers/ambulates with SBA. She has been afebrile and on oxygen at 1 LPM via NC throughout the shift. She was NPO, she is on clear liquids. Tele in place with NSR noted. Call light within reach. ?
--- NOTE | 2024-06-02 18:52 | PC.NURSE ---
End of Shift Note: Patient has been sitting up in the recliner for my shift. Did try to see if could wean off oxygen but she dropped to 84%. LS are clear but diminished she is now up and ambulating in hallway with a portable oxygen tank also have her using a [employer]. Will be giving report to the next shift shortly.
[2024-06-02] MEDS: lisinopriL 10 MG TABLET PO (21:34)
[2024-06-03] VITALS (12 sets, daily range): BP systolic 103–142; BP diastolic 63–77; PULSE 70–96; RESP 18–26; TEMP 36.4–37.3; O2SAT 88–94
--- NOTE | 2024-06-03 05:54 | PC.NURSE ---
End of shift report [id number]: Pleasant and cooperative 43 year old female, alert and oriented x 4. Denies any pain, nausea or vomiting this shift. Lung sounds clear bilaterally. Patient denies any shortness of breath. O2 at 1 L per NC while awake and patient O2 sats 87-91%. Patient did sleep in recliner from [id number], O2 sats did decrease to 80% while sleeping, typewriter ribbon winder increased O2 to 1.5L and sats maintained between 86-93% while sleeping in recliner. At 0315 patient did wake and wanted to sleep in the bed, oxygen continued at 1.5L per NC while in bed and patient ablel to maintain sats 85-91% while sleeping and O2 sats increased to 94% while awake. Denies any cough. Patient reporting swelling to RLE, typewriter ribbon winder assessed and RLE non pitting edema, RLE>LLE in size and patient reporting tenderness to palpation of ankle and calf. Per patient report she does have intermittent swelling to lower extremities when sitting up with legs dependent for prolonged periods, she does intermittent lower extremity exercises to move fluid, she did request information on compression stockings for edema. Ambulates independently.
[2024-06-03 06:31] LABS: HCO3 VBG 34 mmol/L (21-28); PO2 VBG 47.5 mmHG (25-47); pH VBG 7.254 (7.32-7.43)
[2024-06-03 06:37] LABS: PCO2 VBG 76 mmHG (40-50)
[2024-06-03 06:39] LABS: Hematocrit* 45.2 % (33.0-51.0); Hemoglobin* 12.5 gm/dL (12.0-16.0); Mean Corpuscular HGB Conc 28 gm/dL (32-36); Mean Corpuscular Hemoglobin 21 pg (26-34); Mean Corpuscular Volume 77 fL (80-100); Platelet Count* 172 K/uL (140-440); Red Blood Count* 5.85 m/uL (4.00-5.20); White Blood Count* 5.98 K/uL (4.50-11.00)
[2024-06-03 07:15] LABS: Prothrombin Time 21.9 Seconds
[2024-06-03 07:22] LABS: Slide Review Reflex No
[2024-06-03 07:37] LABS: Gamma Glutamyl Transpeptidase* 30 U/L (8-55)
[2024-06-03 07:38] LABS: Cholesterol* 131 mg/dL (90-199); HDL Cholesterol* 28 mg/dL (>=50); LDL Cholesterol Calculated 82 mg/dL (<100); Phosphorus* 4.5 mg/dL (2.5-4.5); Triglycerides* 104 mg/dL (40-149)
[2024-06-03 10:51] LABS: ABG PCO2 54 mmHG (35-45); Base Excess ABG 5.9 mmol/L (-3.0-3.0); HCO3 ABG 32 mmol/L (21-28); Oxygen Saturation ABG 82 % (92-100); TCO2 ABG 30 mmol/l (21-30); pH ABG 7.38 (7.35-7.45)
[2024-06-03 10:55] LABS: PO2 ABG 44.7 mmHG (80-105)
--- NOTE | 2024-06-03 11:06 | P.IMPN_ITS ---
Assessment and Plan Assessment and plan (1) Acute on chronic respiratory failure with hypoxia and hypercapnia: Problem comment: - known IMELDA, pulm HTN, and is morbidly obese. All untreated, patient has been noncompliant with medical care and f/u. I suspect she also has obesity hypoventilation syndrome. - ECHO performed at this admission and it showed severely reduced right ventricular function and pulmonary hypertension. - Respiratory therapy consulted - Use O2 cautiously to avoid worsening hypercapnia. - ABGs on June 03 showed severe hypoxia and CO2 retention - ordered nocturnal oximetry - patient will need BiPAP and assess with ABGs for improvement after using BiPAP. Status: Acute (2) Upper GI bleed: Problem comment: - Patient reports taste of blood in am in back of mouth and bloody emesis today after getting IV contrast. Also has h/o iron deficiency anemia last year and bloody emesis 2 years ago for which she failed to f/u for EGD. - Check stool hemoccult - Hgb okay at 13.3. MCV low. Recheck Hgb in am. - Start protonix bolus and drip, NPO after MN, EGD tomorrow if available. - 06/02/2024: Obtain stool for Helicobacter pylori. Switch from IV to oral PPI. I reviewed with our Anesthesiology staff and agree that she is not a safe candidate for an EGD in our [facility] [place] given her elevated cardiopulmonary risks. May need to consider referral elsewhere if this is still needed. Await result of Helicobacter pylori antigen study. Clear liquid diet for now. Advance diet as tolerated. - 06/03/2024: Patient states that since admission she did not see any blood. Her hemoglobin was stable over her stay we will resume her warfarin due to the high risk of VTE as patient has history of recurrent DVTs and PE. Trend Hb. Status: Acute (3) Chronic anticoagulation: Problem comment: - hold warfarin for EGD tomorrow. - 06/02/2024: Will not do EGD here in our [facility] due to high risk. Reviewed the same with Anesthesiology who agrees. May consider resumption of warfarin starting tomorrow. - 06/03/2024: Patient states that since admission she did not see any blood. Her hemoglobin was stable over her stay we will resume her warfarin due to the high risk of VTE as patient has history of recurrent DVTs and PE Status: Chronic (4) Epigastric pain: Problem comment: - EGD as above. Will also obtain CT abd/pelvis. Will order this without contrast today due to patient already having IVP dye today. - 06/02/2024: Risk for EGD too high for us to be doing an EGD in our [facility]. Reviewed with Anesthesiology. Status: Acute (5) Chest pain: Problem comment: - acute on chronic. h/o PE, Chest CTA neg for large PE, INR therapeutic, but has not had outpatient INRs drawn consistently due to noncompliance. No chest pain at present. May be related to epigastric pain, GI source. Has not had a cardiac w/u for a while. Admit for obs on tele. Obtain ECHO. Repeat trop in am. Will need stress test. While this could happen as an outpatient. Status: Acute (6) Cardiomegaly: Problem comment: - Seen on CT chest today. Obtain ECHO. Status: Acute (7) Pulmonary hypertension: Problem comment: - Previously known. Likely contributing to hypoxia (of which patient seems unaware, so it is likely chronic). Will likely need oxygen for homegoing and referral to outpatient pulmonology. Status: Chronic (8) Adrenal adenoma: Problem comment: 06/01/24 CT chest: Indeterminate right adrenal nodule measuring 1.3 cm, possibly an adrenal adenoma. Further evaluation may be obtained with a dedicated contrast enhanced CT, adrenal mass protocol. Status: Acute (9) HTN (hypertension): Problem comment: - continue lisinopril Status: Chronic (10) IMELDA (obstructive sleep apnea): Problem comment: - previously known (mentioned in [facility] record). Patient unaware of this diagnosis, so she is not on CPAP. I recommended f/u with lithographic photographer apprentice for IMELDA. - initiated discussion regarding sleep study as well as assessment for bariatric surgery. Status: Chronic (11) Type 2 diabetes mellitus: Problem comment: - obtain HgbA1C - hold glipizide and metformin as patient will be NPO for EGD tomorrow - Cover with ISS Status: Chronic (12) Noncompliance: Problem comment: - Per note from her PCP 08/06/23: patient noncompliant with INR clinic follow up. - Patient also admits to not having gone in to get INR checked in a very long time. - 06/02/2024: noncompliant with multiple medical conditions and recommendations. Initiated dialogue with patient about her short and long-term healthcare goals. She states her motivation to care for herself is to be around 4 children. Status: Acute (13) Pulmonary nodules: Problem comment: 06/01/24 CT chest: There are scattered pulmonary nodules measuring up to 7 mm, indeterminate, possibly infectious or inflammatory in etiology. Recommend repeat CT in 3-6 months to assess stability or resolution to exclude underlying neoplasm, with optional additional follow-up CT in 18-24 months, per Fleischner society guidelines. Status: Acute (14) Obesity: Problem comment: BMI 50 Status: Acute (15) Obesity hypoventilation syndrome: Status: Suspected (16) History of pulmonary embolus (PE): Problem comment: - 5 days status post , 2007 - chronically anticoagulated on warfarin, with INR goal 2-3 Status: Acute (17) History of recurrent deep vein thrombosis (DVT): Problem comment: - chronically anticoagulated on warfarin with INR goal of 2-3 Status: Acute (18) Abdominal obesity and metabolic syndrome: Status: Acute Subjective Date Seen: 06/03/24 Interval history: Patient was seen and examined at bedside today. We discussed the need for BiPAP to treat her chronic hypoxic/hypercapnic respiratory failure. We discussed also her echo findings and the severe reduction in the right ventricle function in addition to pulmonary hypertension. Patient understood and is in agreement. Exam Narrative: Exam Narrative: The Physical exam GENERAL: Morbidly obese, On O2 NC. HEAD AND NECK: Atraumatic, normocephalic CARDIOVASCULAR: RRR. Normal S1, S2. RESPIRATORY: Clear to auscultation B/L. Reduced air entry B/L. NEUROLOGY: Alert, awake, oriented X 3. Normal speech. PSYCH: Normal mood, normal affect. Const: Vital Signs, click to edit/add: Vital Signs - 24 hr 06/02/24 11:55 06/02/24 15:00 06/02/24 15:00 Temperature 98.9 F Pulse Rate Pulse Rate [Right Radial] 82 Respiratory Rate 20 20 Blood Pressure [R forearm] 123/54 L Pulse Oximetry 90 92 92 Oxygen Delivery Me thod Nasal Cannula Nasal Cannula Oxygen Flow Rate 1 1 06/02/24 15:00 06/02/24 15:00 06/02/24 19:00 Temperature 98.7 F 99.3 F Pulse Rate 80 Pulse Rate [Right Radial] 79 84 Respiratory Rate 20 18 Blood Pressure [R forearm] 140/84 H 131/68 Pulse Oximetry 92 90 Oxygen Delivery Me thod Nasal Cannula Room Air Oxygen Flow Rate 1 06/02/24 23:00 06/02/24 23:00 06/02/24 23:00 Temperature Pulse Rate 80 Pulse Rate [Right Radial] 84 Respiratory Rate 18 Blood Pressure [R forearm] Pulse Oximetry 91 Oxygen Delivery Me thod Oxygen Flow Rate 06/02/24 23:00 06/02/24 23:00 06/03/24 03:00 Temperature 97.6 F 97.6 F Pulse Rate Pulse Rate [Right Radial] 71 76 Respiratory Rate 20 20 18 Blood Pressure [R forearm] 115/99 H 103/73 Pulse Oximetry 91 91 94 Oxygen Delivery Me thod Nasal Cannula Nasal Cannula Nasal Cannula Oxygen Flow Rate 1 1 1.5 06/03/24 06:54 06/03/24 08:03 06/03/24 08:30 Temperature 97.7 F Pulse Rate 74 Pulse Rate [Right Radial] 72 Respiratory Rate 24 Blood Pressure [R forearm] 129/64 Pulse Oximetry 93 91 Oxygen Delivery Me thod Nasal Cannula Oxygen Flow Rate 06/03/24 08:30 Temperature Pulse Rate Pulse Rate [Right Radial] Respiratory Rate 20 Blood Pressure [R forearm] Pulse Oximetry 92 Oxygen Delivery Me thod Nasal Cannula Oxygen Flow Rate 1 Labs Labs: Laboratory Results - last 24 hr 06/03/24 06/03/24 06:19 Unknown WBC 5.98 RBC 5.85 H Hgb 12.5 Hct 45.2 MCV 77 L MCH 21 L MCHC 28 L Plt Count 172 INR 1.80 H ABG pH 7.38 ABG pCO2 54 H ABG pO2 44.7 L* ABG HCO3 32 H ABG Total CO2 30 ABG O2 Saturation 82 L ABG Base Excess 5.9 H VBG pH 7.254 L VBG pCO2 76 H* VBG pO2 47.5 H VBG HCO3 34 H Phosphorus 4.5 Magnesium 2.0 GGT 30 Triglycerides 104 Cholesterol 131 LDL Cholesterol, Calc 82 HDL Cholesterol 28 L TSH 1.180
[2024-06-03] MEDS: hydrOXYzine pamoate 25 MG CAPSULE 50 MG PO ×2 (15:03→22:28)
--- NOTE | 2024-06-03 15:16 | PC.NURSE ---
End of Shift Note: I took over care of this patient around 10:30 when ABG was showing she needed to possibly be put on CPAP or BIpap. She sat up in the recliner for awhile and then requested to take a nap. RT was in and has placed her on cpap. She is claustrophobic so she received hydroxyzine to help her relax. Report given to next shift.
[2024-06-03 17:19] LABS: ABG PCO2 55 mmHG (35-45); Base Excess ABG 6.4 mmol/L (-3.0-3.0); HCO3 ABG 33 mmol/L (21-28); Oxygen Saturation ABG 90 % (92-100); PO2 ABG 56.6 mmHG (80-105); TCO2 ABG 30 mmol/l (21-30); pH ABG 7.39 (7.35-7.45)
[2024-06-03] MEDS: WARFARIN 5 MG TABLET 10 MG PO (17:31)
[2024-06-03] MEDS: INSULIN ASPART 100 UNIT/ML SUBCUT ×2 (17:31→20:37)
[2024-06-03 19:08] LABS: ABG PCO2 55 mmHG (35-45); Base Excess ABG 6.4 mmol/L (-3.0-3.0); HCO3 ABG 33 mmol/L (21-28); Oxygen Saturation ABG 90 % (92-100); PO2 ABG 56.6 mmHG (80-105); TCO2 ABG 30 mmol/l (21-30); pH ABG 7.39 (7.35-7.45)
[2024-06-03] MEDS: SODIUM CHLORIDE 0.9 % (FLUSH) 10 ML SYRINGE 5 ML IVF (20:37)
[2024-06-03] MEDS: lisinopriL 10 MG TABLET PO (20:37)
--- NOTE | 2024-06-03 23:19 | PC.NURSE ---
15-23: pleasant and cooperative. Completed CPAP trial, pt failed, BiPAP trial tonight, will reassess ABGs in AM. pt on RA when awake. LS dim. indep in room. Vistaril given prior to BiPAP placement, pt verbalizes claustrophobia.
[2024-06-04] VITALS (10 sets, daily range): BP systolic 117–138; BP diastolic 60–71; PULSE 63–90; RESP 20–26; TEMP 36.4–36.8; O2SAT 89–94
[2024-06-04 03:55] LABS: Hematocrit* 46.9 % (33.0-51.0); Hemoglobin* 12.8 gm/dL (12.0-16.0); Mean Corpuscular HGB Conc 27 gm/dL (32-36); Mean Corpuscular Hemoglobin 21 pg (26-34); Mean Corpuscular Volume 77 fL (80-100); Platelet Count* 195 K/uL (140-440); Red Blood Count* 6.06 m/uL (4.00-5.20); White Blood Count* 5.89 K/uL (4.50-11.00)
[2024-06-04 03:56] LABS: ABG PCO2 57 mmHG (35-45); Base Excess ABG 5.5 mmol/L (-3.0-3.0); HCO3 ABG 33 mmol/L (21-28); Oxygen Saturation ABG 88 % (92-100); PO2 ABG 55.1 mmHG (80-105); TCO2 ABG 30 mmol/l (21-30); pH ABG 7.36 (7.35-7.45)
[2024-06-04 03:59] LABS: Slide Review Reflex No
--- NOTE | 2024-06-04 06:47 | PC.NURSE ---
Shift note: Patient has been on BIPAP since 2300 until 0420 where she requested for removal. Lab was notified to take ABG sample as per order. Patient has been in the recliner since then. At 0630, patient moved back to bed. O2 dropped to as low as 55 when patient was sleeping. Patient offered to put back the BIPAP but was refused. Alert and oriented. Ambulates with SBA.
--- NOTE | 2024-06-04 08:19 | CRLHL7_ITS ---
For Patients: As a result of the Century Cures Act, medical imaging exams and procedure reports are released immediately into your electronic medical record. You may view this report before your referring provider. If you have questions, please contact your health care provider. Indication: Bilateral lower extremity swelling Technique: Bilateral lower extremity venous ultrasound utilizing grayscale, color flow and duplex Doppler techniques Comparison: Right lower extremity venous ultrasound 05/20/2018 Findings: Sonographic evaluation of bilateral lower extremities from the common femoral, partially visualized greater saphenous, through the femoral, popliteal and calf veins demonstrates echogenic debris, some flow and partial compressibility within the right proximal through distal femoral vein. Other veins are negative and there are no popliteal cysts. Impression: Partially occlusive thrombus within the right proximal to distal femoral vein, chronic versus developing DVT. Critical results discussed with Dr. Patti Braswell at time of dictation. Dictated by Emmanuel Toscano MD @ 06/04/2024 9:46:02 AM (Electronically Signed)
[2024-06-04 09:36] LABS: ABG PCO2 56 mmHG (35-45); Base Excess ABG 7.3 mmol/L (-3.0-3.0); HCO3 ABG 34 mmol/L (21-28); Oxygen Saturation ABG 87 % (92-100); TCO2 ABG 31 mmol/l (21-30); pH ABG 7.39 (7.35-7.45)
[2024-06-04] MEDS: ENOXAPARIN 120 MG/0.8 ML INJ SUBCUT ×2 (11:46→23:03)
[2024-06-04] MEDS: SODIUM CHLORIDE 0.9 % (FLUSH) 10 ML SYRINGE 5 ML IVF ×2 (11:47→21:41)
--- NOTE | 2024-06-04 12:35 | PM.IMPN1 ---
Assessment and Plan Assessment and plan (1) Acute on chronic respiratory failure with hypoxia and hypercapnia: Problem comment: - known IMELDA, pulm HTN, and is morbidly obese. All untreated, patient has been noncompliant with medical care and f/u. I suspect she also has obesity hypoventilation syndrome. - ECHO performed at this admission and it showed severely reduced right ventricular function and pulmonary hypertension. - Respiratory therapy consulted - Use O2 cautiously to avoid worsening hypercapnia. - ABGs on June 03 showed severe hypoxia and CO2 retention - ordered nocturnal oximetry - Cont BiPAP and assess with ABGs for improvement after using BiPAP. Status: Acute (2) Deep vein thrombosis: Problem comment: -Venous duplex RLE 06/04/2024: Partially occlusive thrombus within the right proximal to distal femoral vein, chronic versus developing DVT. -Resumed warfarin on 06/03. Bridging w/ enoxaparin as INR is <2. Status: Acute (3) Upper GI bleed: Problem comment: - Patient reports taste of blood in am in back of mouth and bloody emesis today after getting IV contrast. Also has h/o iron deficiency anemia last year and bloody emesis 2 years ago for which she failed to f/u for EGD. - Check stool hemoccult - Hgb okay at 13.3. MCV low. Recheck Hgb in am. - Start protonix bolus and drip, NPO after MN, EGD tomorrow if available. - 06/02/2024: Obtain stool for Helicobacter pylori. Switch from IV to oral PPI. I reviewed with our Anesthesiology staff and agree that she is not a safe candidate for an EGD in our [facility] given her elevated cardiopulmonary risks. May need to consider referral elsewhere if this is still needed. Await result of Helicobacter pylori antigen study. Clear liquid diet for now. Advance diet as tolerated. - 06/03/2024: Patient states that since admission she did not see any blood. Her hemoglobin was stable over her stay we will resume her warfarin due to the high risk of VTE as patient has history of recurrent DVTs and PE. Trend Hb. - 06/04 no bleeding stable hb. Status: Acute (4) Chronic anticoagulation: Problem comment: - hold warfarin for EGD tomorrow. - 06/02/2024: Will not do EGD here in our [facility] due to high risk. Reviewed the same with Anesthesiology who agrees. May consider resumption of warfarin starting tomorrow. - 06/03/2024: Patient states that since admission she did not see any blood. Her hemoglobin was stable over her stay we will resume her warfarin due to the high risk of VTE as patient has history of recurrent DVTs and PE - 06/04: Bridging w/ enoxaparin as INR is <2. Venous duplex RLE: Partially occlusive thrombus within the right proximal to distal femoral vein, chronic versus developing DVT. Status: Chronic (5) Epigastric pain: Problem comment: - EGD as above. Will also obtain CT abd/pelvis. Will order this without contrast today due to patient already having IVP dye today. - 06/02/2024: Risk for EGD too high for us to be doing an EGD in our [facility]. Reviewed with Anesthesiology. Status: Acute (6) Chest pain: Problem comment: - acute on chronic. h/o PE, Chest CTA neg for large PE, INR therapeutic, but has not had outpatient INRs drawn consistently due to noncompliance. No chest pain at present. May be related to epigastric pain, GI source. Has not had a cardiac w/u for a while. Admit for obs on tele. Obtain ECHO. Repeat trop in am. Will need stress test. While this could happen as an outpatient. Status: Acute (7) Cardiomegaly: Problem comment: - Seen on CT chest today. Obtain ECHO. Status: Acute (8) Pulmonary hypertension: Problem comment: - Previously known. Likely contributing to hypoxia (of which patient seems unaware, so it is likely chronic). Will likely need oxygen for homegoing and referral to outpatient pulmonology. Status: Chronic (9) Adrenal adenoma: Problem comment: 06/01/24 CT chest: Indeterminate right adrenal nodule measuring 1.3 cm, possibly an adrenal adenoma. Further evaluation may be obtained with a dedicated contrast enhanced CT, adrenal mass protocol. Status: Acute (10) HTN (hypertension): Problem comment: - continue lisinopril Status: Chronic (11) IMELDA (obstructive sleep apnea): Problem comment: - previously known (mentioned in [facility] record). Patient unaware of this diagnosis, so she is not on CPAP. I recommended f/u with used car make ready worker for IMELDA. - initiated discussion regarding sleep study as well as assessment for bariatric surgery. Status: Chronic (12) Type 2 diabetes mellitus: Problem comment: - obtain HgbA1C - hold glipizide and metformin as patient will be NPO for EGD tomorrow - Cover with ISS Status: Chronic (13) Noncompliance: Problem comment: - Per note from her PCP 08/06/23: patient noncompliant with INR clinic follow up. - Patient also admits to not having gone in to get INR checked in a very long time. - 06/02/2024: noncompliant with multiple medical conditions and recommendations. Initiated dialogue with patient about her short and long-term healthcare goals. She states her motivation to care for herself is to be around 4 children. Status: Acute (14) Pulmonary nodules: Problem comment: 06/01/24 CT chest: There are scattered pulmonary nodules measuring up to 7 mm, indeterminate, possibly infectious or inflammatory in etiology. Recommend repeat CT in 3-6 months to assess stability or resolution to exclude underlying neoplasm, with optional additional follow-up CT in 18-24 months, per Fleischner society guidelines. Status: Acute (15) Obesity: Problem comment: BMI 50 Status: Acute (16) Obesity hypoventilation syndrome: Status: Suspected (17) History of pulmonary embolus (PE): Problem comment: - 5 days status post , 2007 - chronically anticoagulated on warfarin, with INR goal 2-3 Status: Acute (18) History of recurrent deep vein thrombosis (DVT): Problem comment: - chronically anticoagulated on warfarin with INR goal of 2-3 Status: Acute (19) Abdominal obesity and metabolic syndrome: Status: Acute Total Time Spent Total Time Spent: Today I spent 50 minutes seeing the patient, reviewing Expanse and EPIC notes/diagnostics, discussing the care plan with our care time that includes social work, PT/OT, pharmacy, RT, fdc and documenting my impressions and plan in the medical record. Subjective Date Seen: 06/04/24 Interval history: Patient was seen and examined at bedside today. Pt was put on BiPAP overnight but she removed it around 3 am. Pt c/o pain and swelling of her Rt LE. Venous duplex showed: Partially occlusive thrombus within the right proximal to distal femoral vein, chronic versus developing DVT. Exam Narrative: Exam Narrative: Physical exam GENERAL: Morbidly obese, Bipap on. HEAD AND NECK: Atraumatic, normocephalic CARDIOVASCULAR: RRR. Normal S1, S2. No murmurs. RESPIRATORY: Clear to auscultation B/L. Good air entry w/ bipap NEUROLOGY: Alert, awake, oriented X 3. Normal speech. MSK: Rt calf tender to palpation and swelling below knee level. PSYCH: Normal mood, normal affect. Const: Vital Signs, click to edit/add: Vital Signs - 24 hr 06/03/24 13:51 06/03/24 15:00 06/03/24 16:13 Temperature Pulse Rate 83 Pulse Rate [Pulse Oximeter] Pulse Rate [Right Radial] 88 Respiratory Rate Blood Pressure [R forearm] Pulse Oximetry 90 Oxygen Delivery Me thod Nasal Cannula CPAP Oxygen Flow Rate 1 Fraction of Inspir ed Oxygen 06/03/24 17:42 06/03/24 17:50 06/03/24 18:58 Temperature 97.8 F Pulse Rate 84 Pulse Rate [Pulse Oximeter] Pulse Rate [Right Radial] 81 Respiratory Rate 24 Blood Pressure [R forearm] 133/63 Pulse Oximetry 88 Oxygen Delivery Me thod CPAP Nasal Cannula Oxygen Flow Rate 1 Fraction of Inspir ed Oxygen 0.25 06/03/24 19:29 06/03/24 20:00 06/03/24 23:00 Temperature Pulse Rate 96 Pulse Rate [Pulse Oximeter] 86 88 Pulse Rate [Right Radial] Respiratory Rate 26 H Blood Pressure [R forearm] 139/66 Pulse Oximetry 91 88 Oxygen Delivery Me thod Room Air Room Air Oxygen Flow Rate Fraction of Inspir ed Oxygen 06/03/24 23:00 06/03/24 23:00 06/03/24 23:00 Temperature Pulse Rate Pulse Rate [Pulse Oximeter] 89 Pulse Rate [Right Radial] Respiratory Rate 26 H 26 H Blood Pressure [R forearm] Pulse Oximetry 89 89 Oxygen Delivery Me thod BiPAP Oxygen Flow Rate Fraction of Inspir ed Oxygen 06/03/24 23:00 06/04/24 03:00 06/04/24 07:00 Temperature 97.8 F 98.2 F Pulse Rate Pulse Rate [Pulse Oximeter] 89 79 Pulse Rate [Right Radial] Respiratory Rate 26 H 26 H Blood Pressure [R forearm] Pulse Oximetry 89 91 93 Oxygen Delivery Me thod BiPAP BiPAP Oxygen Flow Rate Fraction of Inspir ed Oxygen 06/04/24 07:00 06/04/24 07:00 06/04/24 07:52 Temperature 97.8 F Pulse Rate 63 Pulse Rate [Pulse Oximeter] 74 Pulse Rate [Right Radial] Respiratory Rate 20 20 Blood Pressure [R forearm] 135/65 Pulse Oximetry 93 93 Oxygen Delivery Me thod Nasal Cannula Nasal Cannula Oxygen Flow Rate 1 1 Fraction of Inspir ed Oxygen 06/04/24 09:30 06/04/24 11:00 06/04/24 12:08 Temperature 98.3 F Pulse Rate Pulse Rate [Pulse Oximeter] 82 Pulse Rate [Right Radial] Respiratory Rate 20 Blood Pressure [R forearm] 117/60 Pulse Oximetry 92 Oxygen Delivery Me thod BiPAP Nasal Cannula Oxygen Flow Rate 1 Fraction of Inspir ed Oxygen 0.25 0.30 Labs Labs: Laboratory Results - last 24 hr 06/03/24 06/03/24 06/04/24 17:18 Unknown 03:34 WBC 5.89 RBC 6.06 H Hgb 12.8 Hct 46.9 MCV 77 L MCH 21 L MCHC 27 L Plt Count 195 ABG pH 7.39 7.39 7.36 ABG pCO2 55 H 55 H 57 H ABG pO2 56.6 L 56.6 L 55.1 L ABG HCO3 33 H 33 H 33 H ABG Total CO2 30 30 30 ABG O2 Saturation 90 L 90 L 88 L ABG Base Excess 6.4 H 6.4 H 5.5 H 06/04/24 09:30 WBC RBC Hgb Hct MCV MCH MCHC Plt Count ABG pH 7.39 ABG pCO2 56 H ABG pO2 52.0 L ABG HCO3 34 H ABG Total CO2 31 H ABG O2 Saturation 87 L ABG Base Excess 7.3 H Imaging Venous US: Attestation: I have reviewed the pertinent imaging results. Radiologist's impression: Partially occlusive thrombus within the right proximal to distal femoral vein, chronic versus developing DVT.
[2024-06-04 13:33] LABS: INR 1.43 (0.91-1.10); Prothrombin Time 18.4 Seconds
[2024-06-04] MEDS: WARFARIN 5 MG TABLET 10 MG PO (17:16)
[2024-06-04] MEDS: INSULIN ASPART 100 UNIT/ML SUBCUT ×2 (17:40→21:41)
--- NOTE | 2024-06-04 19:54 | PC.NURSE ---
End of shift [id number] - Pt alert, oriented, cooperative. Up independently in room. Off of BiPaP while awake during day per RT. Pt tolerating O2 via nasal canula at 1L to maintain saturation 88-92% per RT. Denies pain, SOB, n/v. Pt reported pain in RLE and increased edema. MD made aware, orders for medication and imaging given. Visitors at bedside, pt appears to be resting comfortably at end of shift with call light within reach.
[2024-06-04] MEDS: lisinopriL 10 MG TABLET PO (21:41)
[2024-06-04] MEDS: MELATONIN 3 MG TABLET PO (23:03)
[2024-06-04] MEDS: hydrOXYzine pamoate 25 MG CAPSULE 50 MG PO (23:03)
[2024-06-05] VITALS (7 sets, daily range): BP systolic 125–144; BP diastolic 59–64; PULSE 63–85; RESP 20–25; TEMP 36.3–36.8; O2SAT 89–93
[2024-06-05 06:42] LABS: Hematocrit* 43.9 % (33.0-51.0); Hemoglobin* 12.1 gm/dL (12.0-16.0); Mean Corpuscular HGB Conc 28 gm/dL (32-36); Mean Corpuscular Hemoglobin 21 pg (26-34); Mean Corpuscular Volume 77 fL (80-100); Platelet Count* 180 K/uL (140-440); White Blood Count* 5.04 K/uL (4.50-11.00)
[2024-06-05 06:55] LABS: Chloride* 98 mmol/L (96-114); Sodium* 135 mmol/L (135-149)
[2024-06-05 06:56] LABS: Potassium* 4.5 mmol/L (3.6-5.1)
[2024-06-05 06:58] LABS: Blood Urea Nitrogen* 15 mg/dL (5-24); Creatinine* 0.5 mg/dL (0.5-1.5); Est. Creatinine Clearance* 138.61; Estimated Glomerular Filt Rate 121 ml/min
[2024-06-05 06:59] LABS: Anion Gap 3 mEq/L (7-15); Calcium* 8.7 mg/dL (8.4-10.6); Carbon Dioxide* 34 mmol/L (20-32); Glucose* 137 mg/dL (60-115)
--- NOTE | 2024-06-05 06:59 | PC.NURSE ---
Pt alert and oriented x3. Afebrile. Pt denies pain, chest pain, SOB, and N/V. Pt wore BiPAP throughout the night, getting up to use bathroom x1. Pt is up ad ulysses, voiding and tolerating a regular diet. No BM overnight.
[2024-06-05 07:11] LABS: INR 1.74 (0.91-1.10); Prothrombin Time 21.4 Seconds
[2024-06-05 07:44] LABS: Slide Review Reflex Yes
[2024-06-05 07:52] LABS: Slide Review Acceptable Review (Acceptable)
[2024-06-05 08:08] LABS: ABG PCO2 59 mmHG (35-45); Base Excess ABG 5.4 mmol/L (-3.0-3.0); HCO3 ABG 33 mmol/L (21-28); Oxygen Saturation ABG 85 % (92-100); TCO2 ABG 30 mmol/l (21-30); pH ABG 7.35 (7.35-7.45)
[2024-06-05] MEDS: SODIUM CHLORIDE 0.9 % (FLUSH) 10 ML SYRINGE 5 ML IVF ×2 (11:40→21:38)
[2024-06-05] MEDS: ENOXAPARIN 120 MG/0.8 ML INJ SUBCUT ×2 (11:40→23:13)
--- NOTE | 2024-06-05 13:57 | PM.EN ---
Chart Event Note Time Seen by Provider: 13:57 Date Seen: 06/05/24 Chart Event Note: 43-year-old female with chronic hypercapnic respiratory failure and obesity hypoventilation syndrome with an arterial blood gas pCO2 greater than 52. Patient received a trial of CPAP which was unsuccessful at resolving her hypercarbic and hypoxic respiratory failure. Patient received a trial of BiPAP and this improved her hypoxic and hypercarbic respiratory failure.
[2024-06-05] MEDS: WARFARIN 5 MG TABLET 10 MG PO (17:25)
[2024-06-05] MEDS: INSULIN ASPART 100 UNIT/ML SUBCUT (17:27)
--- NOTE | 2024-06-05 18:23 | PM.IMPN1 ---
Assessment and Plan Assessment and plan (1) Acute on chronic respiratory failure with hypoxia and hypercapnia: Problem comment: Patient has morbid obesity with BMI of 63 and obesity hypoventilation syndrome, obstructive sleep apnea, history of pulmonary emboli, severe pulmonary hypertension, severe right heart failure, history of severe COVID with respiratory failure causing chronic respiratory failure with chronic hypoxia and hypercapnia. Now acutely worse. Status: Acute (2) Abdominal obesity and metabolic syndrome: Problem comment: Will need weight loss drug, tirzepitide or other, to reverse this severe health consequences of her morbid obesity. Status: Acute (3) History of pulmonary embolus (PE): Problem comment: - 5 days status post , 2007 - chronically anticoagulated on warfarin, with INR goal 2-3 Status: Acute (4) Chronic anticoagulation: Problem comment: On chronic warfarin Status: Chronic (5) Obesity hypoventilation syndrome: Problem comment: Will need weight loss drug, tirzepitide or other, to reverse this severe health consequences of her morbid obesity. Status: Suspected (6) Pulmonary hypertension: Problem comment: - Previously known. Likely contributing to hypoxia (of which patient seems unaware, so it is likely chronic). Will likely need oxygen for homegoing and referral to outpatient pulmonology. Status: Chronic (7) HTN (hypertension): Problem comment: - continue lisinopril Status: Chronic (8) Type 2 diabetes mellitus: Status: Chronic (9) IMELDA (obstructive sleep apnea): Problem comment: Failed CPAP trial. Trial of BiPAP worked to resolve nocturnal hypoxia and hypercarbia Status: Chronic (10) Upper GI bleed: Problem comment: - Patient reports taste of blood in am in back of mouth and bloody emesis today after getting IV contrast. Also has h/o iron deficiency anemia last year and bloody emesis 2 years ago for which she failed to f/u for EGD. - Check stool hemoccult - Hgb okay at 13.3. MCV low. Recheck Hgb in am. - Start protonix bolus and drip, NPO after MN, EGD tomorrow if available. - 06/02/2024: Obtain stool for Helicobacter pylori. Switch from IV to oral PPI. I reviewed with our Anesthesiology staff and agree that she is not a safe candidate for an EGD in our [facility] given her elevated cardiopulmonary risks. May need to consider referral elsewhere if this is still needed. Await result of Helicobacter pylori antigen study. Clear liquid diet for now. Advance diet as tolerated. - 06/03/2024: Patient states that since admission she did not see any blood. Her hemoglobin was stable over her stay we will resume her warfarin due to the high risk of VTE as patient has history of recurrent DVTs and PE. Trend Hb. - 06/04 no bleeding stable hb. Status: Acute (11) Pulmonary nodules: Problem comment: 06/01/24 CT chest: There are scattered pulmonary nodules measuring up to 7 mm, indeterminate, possibly infectious or inflammatory in etiology. Recommend repeat CT in 3-6 months to assess stability or resolution to exclude underlying neoplasm, with optional additional follow-up CT in 18-24 months, per Fleischner society guidelines. Status: Acute (12) Adrenal adenoma: Problem comment: 06/01/24 CT chest: Indeterminate right adrenal nodule measuring 1.3 cm, possibly an adrenal adenoma. Further evaluation may be obtained with a dedicated contrast enhanced CT, adrenal mass protocol. Status: Acute (13) Deep vein thrombosis: Problem comment: -Venous duplex RLE 06/04/2024: Partially occlusive thrombus within the right proximal to distal femoral vein, chronic versus developing DVT. -Resumed warfarin on 06/03. Bridging w/ enoxaparin as INR is <2. Status: Acute Plan Continue in hospital pending plan of discharge to address acute and chronic respiratory failure. Will need BiPAP at discharge. Total Time Spent Total Time Spent: Total time spent today is 60 minutes in review of records, coordination of care and discussing with patient and respiratory therapist ongoing management of respiratory failure and management of obesity Subjective Date Seen: 06/05/24 Interval history: Admission HPI: Martha Dewitt is a 43 year old female with h/o PE, DM2 came through the ER for intermittent CP for the last 4 days. It lasts for up to an hour, substernal and off to the left chest. It does not radiate to her back, arm or jaw. She feels her heart working hard sometimes and this makes her ears feel full. Denies SOB or h/o asthma. No fever, chills. Occasional stomach pain. Had an emesis today after getting the CT dye (she has had this reaction with IVP dye before). Has the taste of blood in her mouth in the mornings, but has not had emesis at home. This has been going on for years, never had a scope. Epigastric pain for the past few months especially if eating in the evening, so she no longer eats heavy meals after 6pm. Denies RUQ pain, melena, hematachezia. She said she's known that something has been wrong for a while, but she's been scared to come in and get checked out because of what it might be and she wants to be there for her children. Patient has multiple conditions contributing to her hypoxic and hypercarbic respiratory failure: History of pulmonary emboli, morbid obesity/obesity hypoventilation syndrome, severe pulmonary hypertension, severe right heart failure, previous severe COVID infection, obstructive sleep apnea. She was treated with BiPAP which was effective at managing her hypoxic and hypercarbic respiratory failure. She had a trial of CPAP which was ineffective at controlling her hypercarbia. She is chronically anticoagulated. She was found to have a partially occlusive DVT. This was of unknown chronicity. She had some blood in the back of her mouth which was possibly thought to be a bloody emesis. This has happened in the past. Her hemoglobin remained stable. Due to her severe respiratory compromise are anesthesia staff felt she could not undergo EGD sedation in our hospital. Treated with a PPI. Exam Narrative: Exam Narrative: She is alert and appears in no distress breathing oxygen on nasal cannula. Respirations are clear to auscultation. She has diffusely decreased breath sounds. Cardiovascular: S1, S2, relatively regular rhythm. Abdomen: Bowel sounds are active. Abdomen is soft without tenderness. Const: Vital Signs, click to edit/add: Vital Signs - 24 hr 06/04/24 19:48 06/04/24 23:00 06/04/24 23:00 Temperature 98.2 F Pulse Rate 77 Pulse Rate [Pulse Oximeter] 90 Respiratory Rate 20 Blood Pressure [R forearm] 138/65 Pulse Oximetry 89 94 Oxygen Delivery Me thod Nasal Cannula Oxygen Flow Rate 1 Fraction of Inspir ed Oxygen 06/04/24 23:40 06/04/24 23:45 06/04/24 23:45 Temperature 97.6 F Pulse Rate Pulse Rate [Pulse Oximeter] 67 67 Respiratory Rate 24 24 24 Blood Pressure [R forearm] 138/71 Pulse Oximetry 94 94 Oxygen Delivery Me thod Nasal Cannula BiPA P BiPAP Oxygen Flow Rate Fraction of Inspir ed Oxygen 06/05/24 03:50 06/05/24 07:00 06/05/24 07:00 Temperature Pulse Rate 64 Pulse Rate [Pulse Oximeter] 63 Respiratory Rate 25 H Blood Pressure [R forearm] Pulse Oximetry 91 93 Oxygen Delivery Me thod BiPAP Oxygen Flow Rate Fraction of Inspir ed Oxygen 0.30 06/05/24 07:00 06/05/24 07:00 06/05/24 08:02 Temperature Pulse Rate Pulse Rate [Pulse Oximeter] 67 Respiratory Rate 20 20 Blood Pressure [R forearm] 125/62 Pulse Oximetry 93 93 Oxygen Delivery Me thod Nasal Cannula Nasal Cannula Oxygen Flow Rate 1 1 Fraction of Inspir ed Oxygen 0.30 06/05/24 08:02 06/05/24 11:00 06/05/24 15:00 Temperature 98.3 F Pulse Rate 85 Pulse Rate [Pulse Oximeter] 84 Respiratory Rate 20 Blood Pressure [R forearm] 132/59 L Pulse Oximetry 93 Oxygen Delivery Me thod BiPAP Room Air Oxygen Flow Rate Fraction of Inspir ed Oxygen 0.30 06/05/24 15:00 06/05/24 15:00 06/05/24 15:00 Temperature Pulse Rate Pulse Rate [Pulse Oximeter] 81 Respiratory Rate Blood Pressure [R forearm] Pulse Oximetry 89 89 91 Oxygen Delivery Me thod Nasal Cannula Nasal Cannula Oxygen Flow Rate 1 1 Fraction of Inspir ed Oxygen Documenting provider has reviewed patient's vital signs: yes Labs Labs: Laboratory Results - last 24 hr 06/05/24 06/05/24 06:22 08:00 WBC 5.04 RBC 5.70 H Hgb 12.1 Hct 43.9 MCV 77 L MCH 21 L MCHC 28 L Plt Count 180 Diff Slide Review Acceptable Review INR 1.74 H ABG pH 7.35 ABG pCO2 59 H ABG pO2 51.0 L ABG HCO3 33 H ABG Total CO2 30 ABG O2 Saturation 85 L ABG Base Excess 5.4 H Sodium 135 Potassium 4.5 Chloride 98 Carbon Dioxide 34 H Anion Gap 3 L BUN 15 Creatinine 0.5 Estimated Creat Clear 138.61 Estimated GFR 121 Glucose 137 H Calcium 8.7
--- NOTE | 2024-06-05 19:31 | PC.NURSE ---
End of [id number] - Pt alert, oriented, cooperative. Up independently in room and ambulated in halls during shift. Pt reported headache and body soreness today, refused medication available per MAY. Pt reported increased comfort with meal and movement. Denied SOB, n/v. Tolerating O2 via nasal cannula at 1L PRN to maintain saturation between 88-92% per RT. Visitors at bedside. Appears to be resting comfortably in chair at end of shift with call light within reach.
[2024-06-05] MEDS: lisinopriL 10 MG TABLET PO (21:37)
[2024-06-05] MEDS: MELATONIN 3 MG TABLET PO (23:46)
[2024-06-05] MEDS: hydrOXYzine pamoate 25 MG CAPSULE 50 MG PO (23:46)
[2024-06-06] VITALS (8 sets, daily range): BP systolic 119–152; BP diastolic 52–77; PULSE 58–77; RESP 18–28; TEMP 36–36.7; O2SAT 78–96
[2024-06-06] MEDS: hydrOXYzine pamoate 25 MG CAPSULE 50 MG PO ×2 (04:27→22:58)
--- NOTE | 2024-06-06 06:46 | PC.NURSE ---
Pt alert and oriented x3. Afebrile. Pt denies pain, SOB, and N/V.?Pt is up ad ulysses, voiding and tolerating a regular diet. No BM overnight. Pt wore BiPAP from 0010 to 0620. Pt is on 1 L nasal cannula when awake to maintain O2 stats of 88%. Pt reports anxiety with BiPAP mask, managed with PRN medication. Pt up walking halls x2 during shift [id number].?
[2024-06-06 07:20] LABS: INR 1.97 (0.91-1.10); Prothrombin Time 23.4 Seconds
[2024-06-06] MEDS: SODIUM CHLORIDE 0.9 % (FLUSH) 10 ML SYRINGE 5 ML IVF ×2 (09:18→21:02)
[2024-06-06] MEDS: ALBUTEROL SULFATE 2.5 MG/3 ML VIAL.NEB NEB (10:11)
--- NOTE | 2024-06-06 10:47 | RESP.RT ---
Bedside spirometry performed post DuoNeb. FVC 0.25 6% of Predicted FEV1 0.24 7% of Predicted %FEV1 0.99 119% of Predicted PEF 0.62 8% of Predicted 25-75 0.46 13% of Predicted. These indicate severe restriction of lung volumes. Test was performed with patient sitting upright in chair, nose clamped, and patient took deep breaths and followed directions.
--- NOTE | 2024-06-06 12:17 | P.IMPN_ITS ---
Assessment and Plan Assessment and plan (1) Acute on chronic respiratory failure with hypoxia and hypercapnia: Problem comment: Patient has morbid obesity with BMI of 63 and obesity hypoventilation syndrome, obstructive sleep apnea, history of pulmonary emboli, severe pulmonary hypertension, severe right heart failure, history of severe COVID with respiratory failure causing chronic respiratory failure with chronic hypoxia and hypercapnia. Now acutely worse. Status: Acute (2) Abdominal obesity and metabolic syndrome: Problem comment: Will need weight loss drug, tirzepitide or other, to reverse this severe health consequences of her morbid obesity. Status: Acute (3) History of pulmonary embolus (PE): Problem comment: - 5 days status post , 2007 - chronically anticoagulated on warfarin, with INR goal 2-3 Status: Acute (4) Chronic anticoagulation: Problem comment: On chronic warfarin Status: Chronic (5) Obesity hypoventilation syndrome: Problem comment: Will need weight loss drug, tirzepitide or other, to reverse this severe health consequences of her morbid obesity. Status: Suspected (6) Pulmonary hypertension: Problem comment: - Previously known. Likely contributing to hypoxia (of which patient seems unaware, so it is likely chronic). Will likely need oxygen for homegoing and referral to outpatient pulmonology. Status: Chronic (7) HTN (hypertension): Problem comment: - continue lisinopril Status: Chronic (8) Type 2 diabetes mellitus: Status: Chronic (9) IMELDA (obstructive sleep apnea): Problem comment: Failed CPAP trial. Trial of BiPAP worked to resolve nocturnal hypoxia and hypercarbia Status: Chronic (10) Upper GI bleed: Problem comment: - Patient reports taste of blood in am in back of mouth and bloody emesis today after getting IV contrast. Also has h/o iron deficiency anemia last year and bloody emesis 2 years ago for which she failed to f/u for EGD. - Check stool hemoccult - Hgb okay at 13.3. MCV low. Recheck Hgb in am. - Start protonix bolus and drip, NPO after MN, EGD tomorrow if available. - 06/02/2024: Obtain stool for Helicobacter pylori. Switch from IV to oral PPI. I reviewed with our Anesthesiology staff and agree that she is not a safe candidate for an EGD in our [facility] given her elevated cardiopulmona ry risks. May need to consider referral elsewhere if this is still needed. Await result of Helicobacter pylori antigen study. Clear liquid diet for now. Advance diet as tolerated. - 06/03/2024: Patient states that since admission she did not see any blood. Her hemoglobin was stable over her stay we will resume her warfarin due to the high risk of VTE as patient has history of recurrent DVTs and PE. Trend Hb. - 06/04 no bleeding stable hb. Status: Acute (11) Pulmonary nodules: Problem comment: 06/01/24 CT chest: There are scattered pulmonary nodules measuring up to 7 mm, indeterminate, possibly infectious or inflammatory in etiology. Recommend repeat CT in 3-6 months to assess stability or resolution to exclude underlying neoplasm, with optional additional follow-up CT in 18-24 months, per Fleischner society guidelines. Status: Acute (12) Adrenal adenoma: Problem comment: 06/01/24 CT chest: Indeterminate right adrenal nodule measuring 1.3 cm, possibly an adrenal adenoma. Further evaluation may be obtained with a dedicated contrast enhanced CT, adrenal mass protocol. Status: Acute (13) Deep vein thrombosis: Problem comment: -Venous duplex RLE 06/04/2024: Partially occlusive thrombus within the right proximal to distal femoral vein, chronic versus developing DVT. -Resumed warfarin on 06/03. Bridging w/ enoxaparin as INR is <2. Status: Acute (14) Central apnea: Problem comment: Recommend outpatient pulmonary consult to address chronic pulmonary disease and possibility of central apnea. Status: Suspected (15) COPD (chronic obstructive pulmonary disease): Problem comment: No history of smoking. FEV1 today is 7% of expected. Status: Acute Plan Continue in hospital pending arrangements for outpatient BiPAP and home oxygen. Possible discharge tomorrow if equipment is available. Total Time Spent Total Time Spent: 40 minutes in coordination of care and discussion with patient and other providers about treatment with durable medical equipment, BiPAP, home O2 Subjective Date Seen: 06/06/24 Interval history: Admission HPI: Martha Dewitt is a 43 year old female with h/o PE, DM2 came through the ER for intermittent CP for the last 4 days. It lasts for up to an hour, substernal and off to the left chest. It does not radiate to her back, arm or jaw. She feels her heart working hard sometimes and this makes her ears feel full. Denies SOB or h/o asthma. No fever, chills. Occasional stomach pain. Had an emesis today after getting the CT dye (she has had this reaction with IVP dye before). Has the taste of blood in her mouth in the mornings, but has not had emesis at home. This has been going on for years, never had a scope. Epiga stric pain for the past few months especially if eating in the evening, so she no longer eats heavy meals after 6pm. Denies RUQ pain, melena, hematachezia. She said she's known that something has been wrong for a while, but she's been scared to come in and get checked out because of what it might be and she wants to be there for her children. Patient has multiple conditions contributing to her hypoxic and hypercarbic respiratory failure: History of pulmonary emboli, morbid obesity/obesity hypoventilation syndrome, severe pulmonary hypertension, severe right heart failure, previous severe COVID infection, obstructive sleep apnea. She was treated with BiPAP which was effective at managing her hypoxic and hypercarbic respiratory failure. She had a trial of CPAP which was ineffective at controlling her hypercarbia. She is chronically anticoagulated. She was found to have a partially occlusive DVT. This was of unknown chronicity. She had some blood in the back of her mouth which was possibly thought to be a bloody emesis. This has happened in the past. Her hemoglobin remained stable. Due to her severe respiratory compromise are anesthesia staff felt she could not undergo EGD sedation in our hospital. Treated with a PPI. 06/06/2024: Patient reports generally doing well. No new concerns today. She has been up walking in the hallway. Daytime supplemental oxygen of 1 L per nasal cannula at rest and 3 L with activity. BiPAP at night has been effective at managing hypercarbia and hypoxia. She is tolerating this better. Spirometry done today shows FEV1 of 7% predicted consistent with a diagnosis of COPD. Exam Narrative: Exam Narrative: She is alert, pleasant in no distress. Observed to ambulate in the hallway. Respirations are clear to auscultation. Cardiovascular: S1, S2, regular rate and rhythm. Abdomen is obese without tenderness. Extremities with minimal edema.. Const: Vital Signs, click to edit/add: Vital Signs - 24 hr 06/05/24 15:00 06/05/24 15:00 06/05/24 15:00 Temperature Pulse Rate 85 Pulse Rate [Pulse Oximeter] Respiratory Rate Blood Pressure [R forearm] Pulse Oximetry 89 89 Oxygen Delivery Me thod Nasal Cannula Oxygen Flow Rate 1 Fraction of Inspir ed Oxygen 06/05/24 15:00 06/05/24 20:20 06/05/24 23:09 Temperature 97.4 F L Pulse Rate 77 Pulse Rate [Pulse Oximeter] 81 77 Respiratory Rate 22 Blood Pressure [R forearm] 144/64 H Pulse Oximetry 91 91 Oxygen Delivery Me thod Nasal Cannula Nasal Cannula Oxygen Flow Rate 1 1 Fraction of Inspir ed Oxygen 06/05/24 23:15 06/05/24 23:15 06/05/24 23:15 Temperature Pulse Rate Pulse Rate [Pulse Oximeter] 74 Respiratory Rate 22 22 Blood Pressure [R forearm] Pulse Oximetry 91 93 Oxygen Delivery Me thod Nasal Cannula Oxygen Flow Rate 1 Fraction of Inspir ed Oxygen 06/05/24 23:15 06/06/24 04:00 06/06/24 06:58 Temperature 98.0 F Pulse Rate 73 Pulse Rate [Pulse Oximeter] 74 58 L Respiratory Rate 22 23 Blood Pressure [R forearm] 136/64 Pulse Oximetry 93 95 Oxygen Delivery Me thod Nasal Cannula BiPAP Oxygen Flow Rate 1 Fraction of Inspir ed Oxygen 0.30 06/06/24 07:15 06/06/24 07:15 06/06/24 07:15 Temperature 96.8 F L Pulse Rate Pulse Rate [Pulse Oximeter] 60 Respiratory Rate 18 Blood Pressure [R forearm] 119/54 L Pulse Oximetry 91 91 91 Oxygen Delivery Me thod Nasal Cannula BiPA P Nasal Cannula BiPA P Oxygen Flow Rate 1 1 Fraction of Inspir ed Oxygen 06/06/24 07:15 Temperature Pulse Rate Pulse Rate [Pulse Oximeter] 60 Respiratory Rate 18 Blood Pressure [R forearm] Pulse Oximetry Oxygen Delivery Me thod Oxygen Flow Rate Fraction of Inspir ed Oxygen Documenting provider has reviewed patient's vital signs: yes Labs Labs: Laboratory Results - last 24 hr 06/06/24 06:24 INR 1.97 H
[2024-06-06] MEDS: ENOXAPARIN 120 MG/0.8 ML INJ SUBCUT ×2 (13:15→22:56)
--- NOTE | 2024-06-06 14:46 | RESP.3PART ---
3 Part Home O2 Testing Summary RT 3 Part Home O2 Testing Summary Start: 06/06/24 12:41 Freq: Status: Active Protocol: Document 06/06/24 12:41 ANA (Rec: 06/06/24 12:43 ANA [id number]) 3 Part Home O2 Testing Summary The following is a summary of the 3 Part O2 Testing Evaluation Date/Time of Testing Date 06/06/24 Time 11:00 Insurance Policy Number [id number] Step 1 SAT on room air at rest (%) 82 Step 2 SAT on room air while exercising (%) 78 Step 3 SAT on supplemental O2 while exercising 90 (%) Liters of supplemental O2 needed while 3 exercising (L) O2 Delivery O2 delivered via Nasal Cannula Comments Comments Patient SAT on room air while at rest is 82% and requires 1L NC to keep SAT at 90%. Patient SAT on room air with activity is 78% and requires 3L NC to keep SAT at 90%.
[2024-06-06 16:17] LABS: Fecal Occult Blood* Negative (Negative)
[2024-06-06 16:17] LABS: H pylori Ag Stool* POSITIVE (Negative)
[2024-06-06] MEDS: WARFARIN 5 MG TABLET 10 MG PO (16:46)
--- NOTE | 2024-06-06 17:05 | PC.NURSE ---
End of shift. pt has been very pleasant. Pt A&Ox 4 and she is able to make needs known. She has denied pain. Pt transfers/ambulates, up ab ulysses. bi-pap is off she has not taken any naps. on oxygen at 1 LPM via NC throughout the shift. she is eating, drinking and voiding. Tele in place it was later d/c by . Call light within reach. ?
--- NOTE | 2024-06-06 19:23 | PC.NURSE ---
End of shift: Patient pleasant and cooperative, A&O. VSS, afebrile. Patient has been on 1L NC this shift. Denies pain. Independent in room.
[2024-06-06] MEDS: lisinopriL 10 MG TABLET PO (21:01)
[2024-06-06] MEDS: MELATONIN 3 MG TABLET PO (22:58)
[2024-06-07 03:00] VITALS: PULSE 63; RESP 19; O2SAT 94
--- NOTE | 2024-06-07 05:55 | PC.NURSE ---
[id number] Pt put on BiPap at 2300, removed around 0445. tolerated well.
[2024-06-07 06:42] LABS: INR 2.06 (0.91-1.10); Prothrombin Time 24.3 Seconds
[2024-06-07 07:30] VITALS: BP 119/74; PULSE 70; RESP 20; TEMP 36.8; O2SAT 91
--- NOTE | 2024-06-07 10:18 | P.DS_ITS ---
DS: Providers Provider Date Seen: 06/07/24 Date of admission: 06/02/24 09:18 Primary care physician: Franca Saucedo MD Admitting Clinician: Lamar Navarro MD Attending Physician on discharge: Bk Schultz MD Date of Discharge: 06/07/24 DS: Diagnosis Discharge Diagnosis (1) Acute on chronic respiratory failure with hypoxia and hypercapnia: Status: Acute Problem details: Patient has morbid obesity with BMI of 63 and obesity hypoventilation syndrome, obstructive sleep apnea, history of pulmonary emboli, severe pulmonary hypertension, severe right heart failure, suspected central apnea, COPD, history of severe COVID with respiratory failure causing chronic respiratory failure with chronic hypoxia and hypercapnia. Marked clinical improvement with BiPAP at night and oxygen during the day. Discharged with instructions to use BiPAP at night and whenever she sleeps. (2) Abdominal obesity and metabolic syndrome: Status: Acute Problem details: Will need weight loss drug, tirzepitide or other, to reverse this severe health consequences of her morbid obesity. She is a high risk surgical candidate. (3) History of pulmonary embolus (PE): Status: Acute Problem details: - 5 days status post , 2007 - chronically anticoagulated on warfarin, with INR goal 2-3 (4) Chronic anticoagulation: Status: Chronic Problem details: On chronic warfarin. Needs close INR follow-up due to treatment for H pylori. (5) Obesity hypoventilation syndrome: Status: Suspected Problem details: Will need weight loss drug, tirzepitide or other, to reverse this severe health consequences of her morbid obesity. (6) Pulmonary hypertension: Status: Chronic Problem details: - Previously known. Likely contributing to hypoxia (of which patient seems unaware, so it is likely chronic). Will likely need oxygen for homegoing and referral to outpatient pulmonology. (7) HTN (hypertension): Status: Chronic Problem details: - continue lisinopril (8) Type 2 diabetes mellitus: Status: Chronic Problem details: Well controlled in the hospital off glyburide. Continue metformin without glyburide. (9) IMELDA (obstructive sleep apnea): Status: Chronic Problem details: Failed CPAP trial. Trial of BiPAP worked to resolve nocturnal hypoxia and hypercarbia (10) Upper GI bleed: Status: Acute Problem details: - Patient reports taste of blood in am in back of mouth and bloody emesis today after getting IV contrast. Also has h/o iron deficiency anemia last year and bloody emesis 2 years ago for which she failed to f/u for EGD. No EGD performed as patient was felt to be too high risk for sedation in [facility] Patient has not had any further evidence of bleeding. Hemoglobin has been stable, 12.1 on discharge. Positive H pylori antigen test. (11) Pulmonary nodules: Status: Acute Problem details: 06/01/24 CT chest: There are scattered pulmonary nodules measuring up to 7 mm, indeterminate, possibly infectious or inflammatory in etiology. Recommend repeat CT in 3-6 months to assess stability or resolution to exclude underlying neoplasm, with optional additional follow-up CT in 18-24 months, per Fleischner society guidelines. (12) Adrenal adenoma: Status: Acute Problem details: 06/01/24 CT chest: Indeterminate right adrenal nodule measuring 1.3 cm, possibly an adrenal adenoma. Further evaluation may be obtained with a dedicated contrast enhanced CT, adrenal mass protocol. (13) Deep vein thrombosis: Status: Acute Problem details: -Venous duplex RLE 06/04/2024: Partially occlusive thrombus within the right proximal to distal femoral vein, chronic versus developing DVT. -Resumed warfarin on 06/03. INR is 2.06 at discharge. (14) Central apnea: Status: Suspected Problem details: Recommend outpatient pulmonary consult to address chronic pulmonary disease and possibility of central apnea. (15) COPD (chronic obstructive pulmonary disease): Status: Acute Problem details: No history of smoking. FEV1 today is 7% of expected. (16) H. pylori infection: Status: Acute Problem details: Treatment with bismuth, tetracycline, metronidazole, omeprazole for 2 weeks. Needs close follow-up of INR due to drug interactions DS: Summary Hospital Course Hospital Course: Admission HPI: Martha Dewitt is a 43 year old female with h/o PE, DM2 came through the ER for intermittent CP for the last 4 days. It lasts for up to an hour, substernal and off to the left chest. It does not radiate to her back, arm or jaw. She feels her heart working hard sometimes and this makes her ears feel full. Denies SOB or h/o asthma. No fever, chills. Occasional stomach pain. Had an emesis today after getting the CT dye (she has had this reaction with IVP dye before). Has the taste of blood in her mouth in the mornings, but has not had emesis at home. This has been going on for years, never had a scope. Epigastric pain for the past few months especially if eating in the evening, so she no longer eats heavy meals after 6pm. Denies RUQ pain, melena, hematachezia. She said she's known that something has been wrong for a while, but she's been scared to come in and get checked out because of what it might be and she wants to be there for her children. Patient has multiple conditions contributing to her hypoxic and hypercarbic respiratory failure: History of pulmonary emboli, morbid obesity/obesity hypoventilation syndrome, severe pulmonary hypertension, severe right heart failure, previous severe COVID infection, obstructive sleep apnea. She was treated with BiPAP which was effective at managing her hypoxic and hypercarbic respiratory failure. She had a trial of CPAP which was ineffective at controlling her hypercarbia. She is chronically anticoagulated. She was found to have a partially occlusive DVT. This was of unknown chronicity. She had some blood in the back of her mouth which was possibly thought to be a bloody emesis. This has happened in the past. Her hemoglobin remained stable. Due to her severe respiratory compromise are anesthesia staff felt she could not undergo EGD sedation in our hospital. Treated with a PPI. H pylori antigen came back positive. Patient is started on treatment with bismuth, tetracycline, metronidazole, omeprazole. Will need close follow-up of INR due to drug interactions. Patient reports tolerating BiPAP very well and feeling better during the day with BiPAP use at night. Her chronic hypoxic and hypercarbic respiratory failure is due to multiple causes but primarily underlying obesity. I emphasized the critical importance of her losing weight and recommended making all attempts to obtain Mounjaro or Wegovy to assist with weight loss Status at Discharge Overall status at discharge: patient is progressing back to baseline Time Spent with Patient Time attestation: Total time spent providing and/or coordinating discharge services: 50 minutes Time spent: Greater than 30 minutes Exam Narrative: Exam Narrative: She is alert, observed to ambulate without difficulty. Breathing is unlabored. Const: Vital Signs, click to edit/add: Vital Signs - 24 hr 06/06/24 12:00 06/06/24 15:00 06/06/24 15:00 Temperature 97.4 F L 98.1 F Pulse Rate [Pulse Oximeter] 77 71 Respiratory Rate 18 20 Blood Pressure [R forearm] 146/70 H 145/70 H Pulse Oximetry 94 91 91 Oxygen Delivery Me thod Nasal Cannula BiPA P Room Air Oxygen Flow Rate 1 Fraction of Inspir ed Oxygen 06/06/24 15:00 06/06/24 15:00 06/06/24 15:29 Temperature Pulse Rate [Pulse Oximeter] 71 Respiratory Rate 20 Blood Pressure [R forearm] Pulse Oximetry 91 Oxygen Delivery Me thod Nasal Cannula Oxygen Flow Rate 1 Fraction of Inspir ed Oxygen 0.30 06/06/24 19:00 06/06/24 23:00 06/06/24 23:00 Temperature 97.6 F Pulse Rate [Pulse Oximeter] 75 75 Respiratory Rate 22 22 Blood Pressure [R forearm] 120/52 L Pulse Oximetry 94 96 Oxygen Delivery Me thod Nasal Cannula Oxygen Flow Rate 1 Fraction of Inspir ed Oxygen 06/06/24 23:00 06/06/24 23:00 06/07/24 03:00 Temperature 97.4 F L Pulse Rate [Pulse Oximeter] 71 63 Respiratory Rate 28 H 19 Blood Pressure [R forearm] 152/77 H Pulse Oximetry 96 96 94 Oxygen Delivery Me thod BiPAP BiPAP BiPAP Oxygen Flow Rate Fraction of Inspir ed Oxygen 30 30 30 06/07/24 07:30 06/07/24 07:30 06/07/24 07:30 Temperature Pulse Rate [Pulse Oximeter] Respiratory Rate 20 20 Blood Pressure [R forearm] Pulse Oximetry 91 91 Oxygen Delivery Me thod Nasal Cannula Oxygen Flow Rate 1 Fraction of Inspir ed Oxygen 06/07/24 07:30 Temperature 98.2 F Pulse Rate [Pulse Oximeter] 70 Respiratory Rate 20 Blood Pressure [R forearm] 119/74 Pulse Oximetry Oxygen Delivery Me thod Nasal Cannula Oxygen Flow Rate 1 Fraction of Inspir ed Oxygen Documenting provider has reviewed patient's vital signs: yes DS: Data Data Completed and Pending Labs on day of discharge: Labs from last 24 hours 06/07/24 06/02/24 06/01/24 05:58 15:45 15:45 INR 2.06 H Stool Occult Blood Negative Stool H. pylori Ag POSITIVE A Imaging CT scan - chest: Radiologist's impression: INDICATION: Dyspnea. Chest pain. TECHNIQUE: Multiplanar CT pulmonary angiogram was performed after the administration of 95 mL of Isovue 370 intravenous contrast. COMPARISON: Chest radiograph 08/09/2021. FINDINGS: Patient body habitus limits evaluation. Lower neck: The visualized thyroid is unremarkable. Cardiovascular: Suboptimal contrast opacification and photopenic artifact limits evaluation for distal pulmonary emboli. Cardiomegaly. The thoracic aorta is normal in caliber. Mildly dilated main pulmonary artery measuring 4.1 cm. Mild atherosclerotic calcifications of the aortic arch. Coronary arterial calcifications. No large central pulmonary embolus. Mediastinum and lymph nodes: Prominent mediastinal lymph nodes, probably reactive. Lungs: No focal consolidation. Dependent atelectasis. Linear bandlike opacification of the lung bases bilaterally, likely subsegmental atelectasis and/or scarring. Mild pulmonary vascular congestion. Mosaic attenuation pattern opacification diffusely, possibly small airways or small vessels disease. There are scattered subcentimeter pulmonary nodules, largest is a right lower lobe pulmonary nodule measuring 7 mm (5:117). Airways: The trachea remains patent and midline. Mild diffuse peribronchial wall thickening. Pleura: No pleural effusions or pneumothorax. Chest wall: Unremarkable. Prominent axillary lymph nodes that do not meet size criteria for lymphadenopathy. Bones: No acute osseous abnormalities. Mild degenerative changes of the thoracic spine. Upper abdomen: No acute findings in the visualized upper abdomen. No reflux of contrast material into the IVC. 1.3 cm right adrenal nodule. IMPRESSION: 1. Limited evaluation due to photopenic artifact. 2. No large central pulmonary embolus. 3. There are scattered pulmonary nodules measuring up to 7 mm, indeterminate, possibly infectious or inflammatory in etiology. Recommend repeat CT in 3-6 months to assess stability or resolution to exclude underlying neoplasm, with optional additional follow-up CT in 18-24 months, per Fleischner society guidelines. 4. A dilated main pulmonary artery measuring 4.1 cm, nonspecific can be seen in setting of pulmonary arterial hypertension. 5. Cardiomegaly with mild pulmonary vascular congestion. 6. Indeterminate right adrenal nodule measuring 1.3 cm, possibly an adrenal adenoma. Further evaluation may be obtained with a dedicated contrast enhanced CT, adrenal mass protocol. CT scan - abdomen: Radiologist's impression: INDICATION: Abdominal pain. TECHNIQUE: Multiplanar CT examination of the abdomen and pelvis was performed without the use of intravenous contrast. COMPARISON: CT pelvis 05/05/2022. FINDINGS: Patient body habitus limits evaluation. Lower chest: No focal consolidation. Mildly enlarged heart size. Mosaic attenuation pattern of opacification, suggestive of small airway/vessel disease. No pleural effusions or pneumothorax. Subsegmental atelectasis. Small hiatal hernia. Liver: Hepatomegaly. Gallbladder: Unremarkable. Biliary: Unremarkable. Pancreas: Within normal limits. Spleen: Unremarkable. Adrenal glands: 1.6 cm hypodense right adrenal nodule. Renal/ureters/bladder: Excreted contrast material in the collecting system, from a prior examination performed earlier the same day. Normal in size. No obstructive uropathy. No hydronephrosis or obstructive urinary calculi. The ureters appear unremarkable. The opacified bladder appears within normal limits. The renal parenchyma is nonenhanced, evaluation for renal masses is limited on this noncontrast examination. Pelvis: Unremarkable uterus. No adnexal masses. Gastrointestinal: No bowel wall thickening or bowel obstruction. Normal appendix. No significant colonic diverticulosis. Mild colonic stool burden. Vasculature: No aortic aneurysm. No significant atherosclerotic calcifications. Lymph nodes: No pathologic lymphadenopathy by size criteria. Peritoneum: No free fluid or pneumoperitoneum. No drainable fluid collections. Abdominal wall/soft tissues: Large fat containing ventral abdominal hernia defects, grossly unchanged. Bones: No acute osseous abnormalities. IMPRESSION: 1. No acute abdominopelvic findings. 2. Limited evaluation for gastrointestinal hemorrhage on this noncontrast examination. No large volume of minerva hemorrhagic blood product identified. 3. 1.6 cm right adrenal nodule, possibly an adrenal adenoma. Consider further evaluation with a nonemergent, outpatient CT adrenal mass protocol to evaluate for underlying neoplasm. 4. Grossly unchanged large ventral abdominal fat containing hernias. Venous US: Radiologist's impression: Indication: Bilateral lower extremity swelling Technique: Bilateral lower extremity venous ultrasound utilizing grayscale, color flow and duplex Doppler techniques Comparison: Right lower extremity venous ultrasound 05/20/2018 Findings: Sonographic evaluation of bilateral lower extremities from the common femoral, partially visualized greater saphenous, through the femoral, popliteal and calf veins demonstrates echogenic debris, some flow and partial compressibility within the right proximal through distal femoral vein. Other veins are negative and there are no popliteal cysts. Impression: Partially occlusive thrombus within the right proximal to distal femoral vein, chronic versus developing DVT. Discharge Plan Discharge Disposition: Home, Self-Care Date of Admission: 06/02/24 09:18 Attending Provider on Discharge: Jose Schultz Primary Care Provider: Franca Saucedo Condition: Stable Anticipated Discharge Date/Time: 06/07/24 09:01 Discharge Medications: New bismuth subsalicylate [Bismuth] 262 mg tablet,chewable 2 tab PO QID 14 Days Qty: 112 0RF omeprazole 20 mg capsule,delayed release(DR/EC) 20 mg PO BID Qty: 60 2RF tetracycline 500 mg capsule 500 mg PO QID Qty: 56 0RF metronidazole 500 mg tablet 500 mg PO TID Qty: 42 0RF Continued lisinopril 10 mg tablet 10 mg PO HS metformin 1,000 mg tablet 1,000 mg PO HS warfarin 4 mg tablet 8 - 10 mg PO DAILY Patient Comments: TAKE 2.5 TABLETS (10MG) ON FRIDAY AND FRIDAY AND 2 TABLETS (8MG) ALL OT HER DAYS OR DIRECTED STRENGTH: 4 MG Discontinued glipizide 10 mg tablet 10 mg PO HS Discharge Orders: Discharge Order (Routine); Ordered 06/07/24 Ordered By: Jose Schultz Additional Instructions: You have been prescribed a BiPAP for use at night or any time when you are sleeping. Without BiPAP you stop breathing properly. It is very important that you use the BiPAP whenever you sleep. During the day you are to use oxygen at 1 L per nasal cannula at rest and 3 L per nasal cannula with activity. Talk to your doctor about medication to help you lose weight. Your breathing problems and heart problems are likely to get worse without weight loss. Activity Level: Activity as Tolerated Discharge Diet: Diabetic Follow Up Appointments: Franca Saucedo MD [Primary Care Provider] - 06/10/24 2:40 pm ([facility] for hospital follow-up appointment. INR needed at appointment. ) Forms: [employer] Info Instructions
--- NOTE | 2024-06-07 13:31 | PC.SOCIAL ---
Addendum entered and electronically signed by Patricia Carlos LCSW 06/07/24 16:12: ERIC spoke with Donna at [facility] ([phone]) who confirmed that she had received 's fax. Donna states that they didn't know patient's insurance until this morning, but will work on the Care Plan as well. Donna reports that they don't do this often so this may be pending for a couple of days. Donna states she is working with her elevator constructor supervisor to determine if they can send patient home with oxygen prior to the approval. ERIC updated rn hemodialysis charge, provider, and RT. SW notified by rn hemodialysis charge that patient will discharge home with approval from Donna that they can discharge patient with the bipap and home oxygen they gave her. Original Note: Discharge Planning: SW met with patient for a general check-in to see how patient is doing and if there are any supports patient needs at home. Patient states that she is doing well, but ready to leave the hospital. Patient explains that she new she would be in the hospital for awhile as she always seems to be when she comes in. Patient states that her family was prepared for this. Patient reports she has no needs from at this time. SW contacted [facility] ([phone]) to complete oxygen order. SW provided patient's information and then needed to call back with oxygen orders prior to sending fax. When on the phone with respiratory, they were unable to find patient's insurance. SW called back with orders and patient insurance information. When NW looked at patient's insurance they informed SW they would not be able to provide services. SW inquired about what oxygen company would take patient's insurance. They stated they did not know and that SW should call the [facility]. SW called [facility] and left voicemail for [facility] METS team. SW updated UR and respiratory therapists to collaborate on a plan. Respiratory therapist provided SW with Emergency Medical Assistance - Care Plan Certification Request to fax to [facility] ([phone]) and [facility] ([phone]). SW faxed required documents and Care Plan Certification. ERIC received call from Patti at [facility] who states that respiratory should not have denied, but should have asked if there was a Care Plan authorization. SW explained that they informed SW that they wouldn't take the insurance at all regardless. Patti states that unless the state changed their contract there's only the one provider. Patti suggested that called the state's provider help desk at [phone].
[2024-06-07 15:00] VITALS: BP 120/86; PULSE 73; RESP 20; TEMP 36.8; O2SAT 91
--- NOTE | 2024-06-07 16:21 | PC.SOCIAL ---
Discharge plan: Received call from Donna Dumont ([phone]) [facility] oxygen rep, stating approval for pt to discharge home today with the Bipap, Portable Concentrator and oxygen tank from [facility] prior to the Emergency Medical Assistance coverage being confirmed. Approval for this was provided to Donna by [employer] MARKETING SPECIALIST of Operations, Patricia Rodriguez. Donna is aware the care plan and proofs of Medical need have been submitted to the [facility] with Emergency Medical Assistance Care Plan and that it will take time for this to be processed. [facility] will allow pt to use the equipment for 30 days with goal of the Emergency Medical Assistance coverage being approved during that time. If Emergency Medical Assistance is denied. Pt is aware and agrees with this plan. If hospital is provided with any updates or decision on the Emergency Medical Assistance coverage of this equipment, this information will be communicated to [facility].
--- NOTE | 2024-06-07 17:29 | PC.NURSE ---
Discharge: The patient was sent home with [employer] O2 tank and bipap machine... pending insurance approval. All belongings were sent home with the patient as well. Education was given regarding O2 at rest (1L) and O2 with activity (3L) via NC. VSS, no complaints of pain. Bilateral LE pitting edema... worse in the R calf. Follow appointment was scheduled and the patient was informed of the date. Inga GUZMAN BSN
--- NOTE | 2024-06-08 14:38 | PC.SOCIAL ---
Social Service Consult: ERIC called patient to inform of a potential insurance option that she could discuss with the navigator at the [facility] to see if it's something that she is interested in so that she'd have more access to healthcare. Patient thanked ERIC.
== END 2024-06-07 16:52 | disposition home or self-care (01) | DRG 133 ==
LOC: ED 17:24 → MEDSURG 18:30
PROVIDERS: Family Medicine; Internal Medicine; Physician Assistant; Student in an Organized Health Care Education/Training Program; Admitting Provider Family Medicine; Emergency Provider Family Medicine; PCP Family Medicine; Visit Provider Family Medicine
DX: J96.21 Acute and chronic respiratory failure with hypoxia (principal); J96.22 Acute and chronic respiratory failure with hypercapnia; K92.2 Gastrointestinal hemorrhage, unspecified; B96.81 Helicobacter pylori [H. pylori] as the cause of diseases classified elsewhere; I82.411 Acute embolism and thrombosis of right femoral vein; D50.9 Iron deficiency anemia, unspecified; I27.20 Pulmonary hypertension, unspecified; E66.2 Morbid (severe) obesity with alveolar hypoventilation; E88.810 Metabolic syndrome; Z68.44 Body mass index [BMI] 60.0-69.9, adult; J44.9 Chronic obstructive pulmonary disease, unspecified; R07.9 Chest pain, unspecified; R10.13 Epigastric pain; E11.9 Type 2 diabetes mellitus without complications; Z91.198 Patient's noncompliance with other medical treatment and regimen for other reason; Z79.01 Long term (current) use of anticoagulants; I11.9 Hypertensive heart disease without heart failure; D35.01 Benign neoplasm of right adrenal gland; R91.8 Other nonspecific abnormal finding of lung field; Z79.84 Long term (current) use of oral hypoglycemic drugs; E28.2 Polycystic ovarian syndrome; Z86.711 Personal history of pulmonary embolism; Z86.718 Personal history of other venous thrombosis and embolism
CPT/HCPCS: 36415; 36600; 71275; 74176; 80048; 80053; 80061; 80076; 82270; 82803; 82962; 82977; 83036; 83605; 83690; 83735; 83880; 84100; 84443; 84484; 85025; 85027; 85379; 85610; 87338; 87637; 93005; 93306; 93970; 94640; 94660; 94761; 97110; 97162; 99284; 99285; A9270; G0378; J1650; J2470; J7030; Q9967